=== PATIENT | female | born 1945 | race Caucasian/White ===

== ENCOUNTER 2018-04-18 06:35 | Inpatient (IN) | payer MEDICARE, OTHER, SELFPAY ==
[2018-04-10 10:06] VITALS: BMI 18.4
[2018-04-18] VITALS (14 sets, daily range): BP systolic 103–143; BP diastolic 60–74; PULSE 60–72; RESP 8–17; TEMP 36–36.6; O2SAT 90–100; BMI 18.4
--- NOTE | 2018-04-18 | DI.RAD.S_ITS ---
PROCEDURE: XR LUMBAR SPINE 2-3V INDICATIONS: SPINAL STENOSIS AND DISC HERNIATION COMPARISON: [facility], , L-SPINE 2-3 VIEWS, 08/27/2017, 9:07. TECHNIQUE/FINDINGS: Intraoperative fluoroscopic radiographs demonstrate placement of an intervertebral disc space or device at the level of L3-L4 as well as right-sided L3-L4 posterior spinal fusion hardware consisting of a stabilizing richie and 2 transpedicular screws. Intraoperative fluoroscopy time was 86 seconds for a cumulative dose of 16.54 mGy. IMPRESSION: Intraoperative fluoroscopy provided for the referring service. Please refer to the operative report for further details. Dictated by: Josef Gonzalez M.D. on 04/18/2018 at 11:13 Approved by: Josef Gonzalez M.D. on 04/18/2018 at 11:54
--- NOTE | 2018-04-18 07:28 | PM.PREOP ---
Pre-operative Note Interval Note Pre-op Check: Yes History & Physical Reviewed by Physician and Yes Exam Performed Changes: No
--- NOTE | 2018-04-18 07:28 | PM.OP.1 ---
Operative Date/Time/Diagnoses Date of procedure: 04/18/18 Time of procedure: 10:19 Pre-op diagnosis: Lumbar stenosis and spondylolisthesis Post-op diagnosis: same Procedure & Clinicians Procedure: L3-4 anterior fusion with cage L3-4 posterior fusion with screws Iliac crest bone graft L3-4 laminectomy Use of microscope Placement of epidural catheter Same procedure as scheduled: Yes Indications: [age] year old female with intractable pain from stenosis. They had failed conservative management and requested operative intervention. Risks and benefits of surgery were discussed and appropriate consents were obtained. Surgeon: Javier Eugene Manager Pediatric: Brittany Hernandes Anesthesia Type: General Operative Notes Findings: None Closure Type: primary Specimen(s): none sent Implants & Drains: Nuvasive MAS Reline screws and XLIF cage Applied: catheter Estimated Blood Loss (mL): 30 Procedure in detail: Patient was brought to the operating room and intubated on the table. Time-out was performed. They were then rolled over to the lateral decubitus position with the [id number]. The table was bent and they were taped down in the correct position. X-rays were taken to confirm a true AP and lateral. Preoperative antibiotics were given. The left flank was prepped and draped in standard sterile fashion. Using fluoroscopy, a 3 cm incision was made above the iliac crest. We bluntly dissected down with Metzenbaum scissors and split the 3 abdominal muscle layers. We dissected out the retroperitoneal space and using finger guidance, brought our 1st dilator down to the psoas muscle. Using neuromonitoring and fluoroscopy, we placed it through the psoas onto the L3-4 disc space in an anterior position and gradually pulled the dilator posteriorly along the disc space. We placed our guidewire and measured our depth for the retractor. We then dilated with the next 2 dilators and then placed our retractor over the dilators. Position was confirmed with fluoroscopy and the retractor was locked down to the bar. We opened up the retractor and checked with neuro monitoring. We then placed the erin and again checked with neuro monitoring. The retractor was opened further and the ALL retractor was placed. An annulotomy was performed. We then performed a complete diskectomy with ring curette, pituitary, box osteotome. A Hu was advanced across the disc space under fluoroscopy to release the lateral annulus on the opposite side. We then used sequentially larger trials and confirmed under fluoroscopy. An XLIF cage was packed with Osteocell bone graft and impacted into the L3-4 disc space with fluoroscopy for the anterior fusion at this level. The wound was irrigated. The retractor was closed down. The erin was removed. We carefully removed the retractor with direct visualization to make sure there was no neurovascular or abdominal injury. Final x-rays were taken. The muscle fascia was closed, superficial tissue was closed. The skin was closed. Sterile dressing was placed. The patient was then rolled over on the well-padded prone position on the Fredo table. Using fluoroscopy for localization, a 4 cm incision was made to the right of the midline. We split the fascia with a Bovie. We then began percutaneously placing the screws. Using fluoroscopy and neuro monitoring, a Jamshidi needle was advanced down the right pedicles of L3 and L4. These were switched out for guidewires. We then tapped and placed our Reline MAS screw shanks. We opened up the retractor and exposed the lamina and the transverse processes. The processes were decorticated with a bur. We then brought in the microscope. A right-sided laminectomy was performed at L3-4 with a combination of bur and Kerrisons. We reached across to the opposite side and carefully depress the dura while we cleared the stenosis on the left hand side. The foramina were clear. At the end of this we could sweep a ball probe cephalad and caudally to the other side in the foramen and everything was opened. In the end the ball probe could be placed cephalad and caudally across to the opposite side in the foramen and everything was opened. The wound was copiously irrigated. An epidural catheter was primed with 4mL of 0.5% bupivacaine, 100 mcg fentanyl, 4 mg Duramorph, 1 mg Stadol. The dura was depressed under the cephalad lamina with a ball probe and the epidural catheter was gently advanced 6 cm cephalad. The retractor was removed and the screw heads were placed. A richie was placed and locked down. A small stab incision was made over the PSIS and a Jamshidi needle was placed into the iliac crest and several mL of bone marrow was aspirated. This was mixed with our locally harvested bone graft as well as the remaining Osteocell and placed in the posterolateral gutter for fusion at L3-4. The fascia was then closed. The epidural was then injected without resistance. The catheter was pulled and we closed more over the fascia. Vancomycin powder was placed in the wound. The superficial and skin were closed. Sterile dressing was placed. The patient was then rolled over, extubated, brought to the recovery room with no complications. Complications: none Condition: stable Disposition: PACU Plan for aftercare: Inpatient. Up with PT.
[2018-04-18] MEDS: LACTATED RINGERS 1,000 ML 42 ML IV ×2 (07:30→10:09)
[2018-04-18] MEDS: CEFAZOLIN 2 GM/100 ML FROZ.PIGGY IV ×3 (07:52→23:26)
--- NOTE | 2018-04-18 09:21 | SUR.OPER ---
Right lateral on padded OR table. Head on pillow, gel axillary roll, pillow to support left arm. Legs flexed, pillows between legs, gel pad under down leg and ankle. Multiple passes of 3 inch cloth tape across shoulder, hip, upper and lower legs to secure patient on OR table.
--- NOTE | 2018-04-18 09:21 | SUR.OPER ---
Prone on spine table, head in foam head support, padded chest and pelvic supports, gel pad at knees, lower legs supported by pillows; nipples, genitalia and toes free of pressure, arms secured on foam padded arm boards at <90 degrees abduction. Tape over blanket at thigh secured to table.
[2018-04-18] MEDS: THROMBIN (BOVINE) 5,000 UNIT VIAL 5000 UNIT TOP (09:34)
[2018-04-18] MEDS: VANCOMYCIN 1,000 MG VIAL 1000 MG TOP (09:35)
[2018-04-18] MEDS: SODIUM CHLORIDE 0.9% 1,000 ML, GENTAMICIN 80 MG IRR (09:35)
[2018-04-18] MEDS: BUPIVACAINE 0.5% (PF) 4 ML, MORPHINE-PF 4 MG, BUTORPHANOL 1 MG, fentaNYL 100 MCG INJ (10:00)
--- NOTE | 2018-04-18 10:47 | PC.NURSE ---
Day shift: Pt not on this AC unit at this time. Will assess and chart after she arrives.
--- NOTE | 2018-04-18 11:15 | PC.NURSE ---
Day shift: Pt arrived on unit at approx 1115 from PACU. Oriented to room and call light. Spouse at bedside for support. Pt reports mild back pain of 1/10. CMS ok. Can feel toes and wiggle them. Both dressings are CDI. RA 96%. VS stable. Call light in reach.
--- NOTE | 2018-04-18 11:36 | PC.NURSE ---
Day shift: Unable to transfer orders at this time. Charted and assessed. Pt stable. Awaiting new orders. Will continue to monitor. Per charger operator helper they are working on the transfer of orders.
[2018-04-18] MEDS: LACTATED RINGERS 1,000 ML 125 ML IV ×2 (12:40→20:03)
[2018-04-18] MEDS: CELECOXIB 200 MG CAPSULE 400 MG PO (12:42)
[2018-04-18] MEDS: HYDROCODONE/ACET 5/325 TABLET 2 TAB PO ×3 (12:46→20:03)
[2018-04-18] MEDS: hydrOXYzine pamoate 25 MG CAPSULE PO ×2 (13:49→20:03)
--- NOTE | 2018-04-18 16:14 | PT.IIE ---
Current Diagnoses Spondylolisthesis, lumbar region (04/18/18) Spinal stenosis, lumbar region with neurogenic claudication (04/18/18) Intervertebral disc disorders with radiculopathy, lumbar region (04/18/18) Surgery Performed Operation Date: 04/18/18 07:45 Actual Procedures p L3-4 Ant/Post Instru Fusion(XLIF)w/Bone Graft. L3-4 Laminectomy - Javier Eugene MD Surgical History (Last Updated 04/10/18 @ 11:18 by Brooklynn Leal, RN) History of breast augmentation (Acute) S/P rotator cuff repair (Acute ~1993) Status post biopsy of kidney (Acute) Medical History (Last Updated 04/10/18 @ 11:15 by Brooklynn Leal, RN) Abnormality of coagulation (Acute) Anxiety and depression (Acute) Arthralgia (Acute) Breast implant rupture (Acute) Breast lump (Acute) Chronic neck pain (Acute) DDD (degenerative disc disease), lumbar (Acute) Fatigue (Acute) Hematuria, microscopic (Acute) Hemorrhoids (Acute) History of bronchitis (Acute) History of pneumonia (Acute ~2014) History of renal failure (Acute) History of steroid therapy (Acute) Hyperlipidemia (Acute) Hypertension (Acute) Hypoalbuminemia (Acute) Insomnia (Acute) Low back pain (Acute) Lumbar disc herniation with radiculopathy (Acute) Lumbar stenosis with neurogenic claudication (Acute) Lymphadenopathy (Acute) Nephrotic syndrome (Acute) Nocturnal leg cramps (Acute) Osteopenia (Acute) Proteinuria (Acute) Restless leg syndrome (Acute) Sacroiliitis (Acute) Seasonal allergies (Acute) Sedimentation rate elevation (Acute) Spondylolisthesis, lumbar region (Acute) Tachycardia (Acute) Tobacco use disorder (Acute) Physical Therapy Inpatient Evaluation/Re-Eval M1 PT/OT-IP Prior Functional Status Start: 04/18/18 14:55 Freq: NEEDED Status: Active Protocol: Document 04/18/18 15:50 RS (Rec: 04/18/18 16:13 RS [id number]) Medical Review Prior Functional Status Medical History Reviewed Yes Diet/Fluid Consistency Regular Communication no known deficits Mobility and Gait completely independent Prior Functional Level (Other details) likes to garden Social History Household Members spouse Living Arrangements House Number of Floors (Floors) One Floor Number of Stairs To Enter/Railing? 1STE from garage Employment Status Retired Additional Social History Comment Has a bed that raises/lowers M2 PT-IP Current Condition Start: 04/18/18 14:55 Freq: NEEDED Status: Active Protocol: Document 04/18/18 15:50 RS (Rec: 04/18/18 16:13 RS [id number]) Physical Therapy Current Condition Current Condition Evaluation Date 04/18/18 Treatment Diagnosis L3-4 anterior fusion w/ cage Onset Date 04/18/18 Precautions Lumbar Precautions Log Roll No Twisting Limit Bending Lifting Restriction of 10 lbs Gait Belt above Incisional Area Weight Bearing Status Weight Bearing Status Weight Bear as Tolerated M3 PT-IP Subjective Start: 04/18/18 14:55 Freq: NEEDED Status: Active Protocol: Document 04/18/18 15:50 RS (Rec: 04/18/18 16:13 RS [id number]) Subjective Physical Therapy Visit Type Type Initial Evaluation Visit Start Time 15:00 Visit Stop Time 15:50 Total Visit Minutes 50 Physical Therapy Visit Comments Patient Comments Pt reports doing well, is happy with pain control so far . Therapy Pain Assessment Pain When Pain Assessed At Rest Pain Present Pain Present Pain Reported Location Back Intensity 3 Scale Used Numeric (1 - 10) Pain Management Techniques Apply Cold Modification of Treatment Re-positioning Timing of Activity with Medications M4 PT-IP Mobility and Gait Start: 04/18/18 14:55 Freq: NEEDED Status: Active Protocol: Document 04/18/18 15:50 RS (Rec: 04/18/18 16:13 RS [id number]) PT-Bed Mobility Assessment Rolling Type of Rolling Log Rolling Level of Assist Standby Assistance Supine to Sit Supine to Sit Contact Guard Assistance Bedrails Sit to Supine Sit to Supine Standby Assistance Bedrails Scooting Scooting to Edge of Bed Standby Assistance PT-Transfer Assessment Sit to and From Stand Sit to and from Stand Standby Assistance Equipment Transfer Assistive Device Gait Belt Front Wheeled Walker Transfers Transfer Destination Bed Transfer Technique Stand Step Pivot Transfer Ability Level of Assist Standby Assistance Comments Mobility Comments very steady, no cues needed Gait Assessment Gait Gait Assistance Required: Standby Assistance Distance (Feet) (feet) 300 Assistive Devices Assistive Device Gait Belt Front Wheeled Walker Gait Deviations General Gait Pattern Within Normal Limits Comments Gait Comments completely WNL w/ a walker, can likely progress to amb without FWW next session Stair Climbing Assessment Comments Stair Climbing Comments not yet attempted PT-Balance Assessment Sitting Balance and Reactions Static Sitting Balance Ability Normal Dynamic Sitting Balance Ability Normal Standing Balance and Reactions Static Standing Balance Ability Normal Dynamic Standing Balance Ability Normal Device Used FWW M5 PT-IP Objective Assessments Start: 04/18/18 14:55 Freq: NEEDED Status: Active Protocol: Document 04/18/18 15:50 RS (Rec: 04/18/18 16:13 RS [id number]) Orientation Orientation/Cognition Level of Alertness Alert Orientation Name Age Birthday Month Date Year Day of Week Place Situation Language Function Ability No Deficits Noted Safety Awareness Understands Safety Issues Memory Description No Deficits Noted Gross Range of Motion Upper Extremity ROM Assessment Within Functional Limits Lower Extremity ROM Assessment Within Functional Limits Strength Upper Extremity Strength Assessment Within Functional Limits Lower Extremity Strength Assessment Within Functional Limits M6 PT-IP Treatment Start: 04/18/18 14:55 Freq: NEEDED Status: Active Protocol: Document 04/18/18 15:50 RS (Rec: 04/18/18 16:13 RS [id number]) Physical Therapy Treatment Education Education Provided Precautions Post-Op Packet Safety M7 PT-IP Assessment and Plan Start: 04/18/18 14:55 Freq: NEEDED Status: Active Protocol: Document 04/18/18 15:50 RS (Rec: 04/18/18 16:13 RS [id number]) PT Summary Assessment and Plan Potential Rehabilitation Potential Excellent Summary Impairments Bed Mobility Transfers Gait Activity Tolerance Progress Towards Goals Progressing Toward Goals Assessment Summary Pt is POD#0 L3-4 anterior fusion and is doing quite well with all mobility. Pt needs no physical assist with any mobility at this point and will likely progress off the walker quickly tomorrow. Pt will benefit from one more session for stair training prior to discharge but will otherwise be ready to go home tomorrow from a PT standpoint. No formalized caregiver training is needed. Pt will not need any equipment, but pt will benefit from ongoing outpatient PT. Goals Bed Mobility Goal Independent Transfer Goal Independent Gait Goal Independent Other Goals indep going up/down 1 step Days to Meet Goals 1 Frequency of Treatment Frequency Of Treatment Twice a Day Treatment Plan Physical Therapy Treatment Plan Bed Mobility Training Transfer Training Gait Training Post Op Education Recommendations To Nursing Amount of Assist Needed Standby Assistance 1 Person Assist Discharge Recommendations PT Discharge Recommendations Home with Assistance Outpatient PT Equipment Needed for Home Before none Discharge
[2018-04-18] MEDS: diphenhydrAMINE 25 MG TABLET PO (16:27)
[2018-04-18] MEDS: GABAPENTIN 100 MG CAPSULE 200 MG PO (17:42)
[2018-04-18] MEDS: GABAPENTIN 300 MG CAPSULE PO (20:03)
[2018-04-18] MEDS: DOCUSATE 100 MG CAPSULE PO (20:03)
[2018-04-18] MEDS: SENNOSIDES 8.6 MG TABLET 17.2 MG PO (20:03)
[2018-04-18] MEDS: CELECOXIB 200 MG CAPSULE PO (20:03)
[2018-04-18] MEDS: LISINOPRIL 5 MG TABLET PO (23:40)
--- NOTE | 2018-04-19 00:25 | PC.NURSE ---
Pt. concerned about her B/P 143/74, HR. 68. Reported my B/P in normally in the 110's systolic the 140's is high. Requested to take her Lisinopril 5 mg. admin. Denies any pain @ this time, will monitor.
[2018-04-19] MEDS: hydrOXYzine pamoate 25 MG CAPSULE PO (01:32)
[2018-04-19] MEDS: HYDROCODONE/ACET 5/325 TABLET 1 TAB PO ×3 (01:32→09:06)
[2018-04-19 03:23] VITALS: BP 126/69; PULSE 71; RESP 18; TEMP 36.4; O2SAT 98
[2018-04-19] MEDS: SODIUM CHLORIDE 0.9% FLUSH 10 ML IV (04:24)
[2018-04-19 05:39] LABS: Hematocrit 29.3 % (36-46); Hemoglobin 10.2 g/dL (12.0-16.0)
[2018-04-19 05:45] LABS: BUN Creatinine Ratio 31.7 (6-22); Blood Urea Nitrogen 19 mg/dL (7-17); Calcium 8.4 mg/dL (8.4-10.2); Carbon Dioxide 30 mmol/L (22-32); Chloride 89 mmol/L (98-107); Estimated Glomerular Filt Rate > 60.0 mL/min (>60); Glucose 149 mg/dL (80-110); HEMOLYSIS < 15 (0-50); Potassium 4.4 mmol/L (3.4-5.1); Sodium 125 mmol/L (137-145)
[2018-04-19 07:30] VITALS: BP 125/66; PULSE 69; RESP 16; TEMP 36.7; O2SAT 99
--- NOTE | 2018-04-19 07:49 | PM.PNPO.1 ---
Subjective Date Patient Seen: 04/19/18 Time Patient Seen: 07:49 Interval history: Pain is about 1/10. She has been up with physical therapy. She is able to get out of bed and get on and off the toilet by herself. Overall she feels great no more leg pain. Exam Vital Signs (past 8 hours): - 04/19/18 03:23 Temperature 97.6 F Pulse Rate 71 Respiratory Rate 18 Blood Pressure 126/69 H Pulse Oximetry 98 Oxygen Delivery Method Room Air Oxygen Flow Rate 0 Const Orientation: alert and oriented x3 Back/Spine/Pelvis Other: Dressing with minimal dry drainage. 5/5 motor both lower extremities Objective Labs Result Diagrams: 04/19/18 05:16 04/19/18 05:16 Labs: Laboratory Results - last 24 hr 04/19/18 04/19/18 05:16 05:16 Hgb 10.2 L Hct 29.3 L Sodium 125 L Potassium 4.4 Chloride 89 L Carbon Dioxide 30 BUN 19 H Creatinine 0.60 Estimated GFR > 60.0 BUN/Creatinine Ratio 31.7 H Glucose 149 H Calcium 8.4 Assessment & Plan Post-op Postoperative Procedures Operation Date: 04/18/18 07:45 Actual Procedures Side Surgeon p L3-4 Ant/Post Instru Fusion(XLIF)w/Bone Graft. L3-4 Laminectomy Javier Eugene MD she is doing very well. She would like to go home and I think that is fine. Time Spent With Patient less than 15 minutes Quality VTE Deep Vein Thrombosis/Pulmonary Embolism Present on Admission: No
--- NOTE | 2018-04-19 07:52 | PM.DS.1 ---
History of Present Illness Date Patient Seen: 04/19/18 Time Patient Seen: 07:53 Chief complaint: [id number] Narrative: 72-year-old female with right leg radiculopathy. She was admitted on 04/18/2018 for L3-4 laminectomy and anterior/posterior fusion Discharge Providers Date of admission: 04/18/18 06:35 Primary care physician: Nolberto Us MD Consults: 04/18/18 11:33 Consult to Dietitian, Adult Routine Comment: Reason For Exam: Low BMI promt 04/18/18 12:17 Consult to Discharge Planning Routine Comment: Consult to Occupational Therapy Evaluate & Treat Comment: Physician Instructions: Evaluate and treat Consult to Physical Therapy Evaluate & Treat Comment: Physician Instructions: Evaluate and Treat Discharge provider: Javier Eugene MD Summary Discharge Diagnosis: Lumbar stenosis and spondylolisthesis Hospital Course: Underwent L3-4 laminectomy and anterior/posterior instrumented fusion on 04/18/2018. Minimal pain afterwards. Did very well with physical therapy and was independent and up and mobilizing by herself by the next morning. She requested to discharge home as she was doing so well. Time Spent with Patient Less than 30 minutes Exam Vital Signs (past 8 hours): - 04/19/18 03:23 Temperature 97.6 F Pulse Rate 71 Respiratory Rate 18 Blood Pressure 126/69 H Pulse Oximetry 98 Oxygen Delivery Method Room Air Oxygen Flow Rate 0 Const Orientation: alert and oriented x3 Back/Spine/Pelvis Other: 5/5 motor both lower extremities Objective Labs Result Diagrams: 04/19/18 05:16 04/19/18 05:16 Labs: Laboratory Results - last 24 hr 04/19/18 04/19/18 05:16 05:16 Hgb 10.2 L Hct 29.3 L Sodium 125 L Potassium 4.4 Chloride 89 L Carbon Dioxide 30 BUN 19 H Creatinine 0.60 Estimated GFR > 60.0 BUN/Creatinine Ratio 31.7 H Glucose 149 H Calcium 8.4 Discharge Plan Discharge Plan Patient Disposition: Home, Self-Care Discharge comment: f/u 1.5 wks Discharge Med Rec/Prescriptions Prescriptions: New hydrocodone-acetaminophen 5-325 mg Tablet See Label Instructions .ROUTE .COMPLEX PRN (Reason: Pain, Severe (7-10)) Qty: 30 RF: 0 hydroxyzine pamoate 25 mg Capsule 25 mg PO Q4HR PRN (Reason: spasms) Qty: 20 RF: 0 celecoxib [Celebrex] 200 mg Capsule 200 mg PO BID PRN (Reason: pain) Qty: 30 RF: 0 Continue atorvastatin [Lipitor] 10 MG tablet 10 mg PO QDAY Qty: 0 RF: 0 potassium chloride [Klor-Con M20] 20 MEQ tablet,ER particles/crystals 1 tab PO DAILY Qty: 0 RF: 0 pramipexole [Mirapex] 0.125 MG tablet 0.125 mg PO SEEINSTR Qty: 0 RF: 0 lisinopril 5 mg Tablet 5 mg PO DAILY PRN (Reason: blood pressure control) RF: 0 gabapentin 100 mg Capsule 200 mg PO TID RF: 0 ascorbic acid (vitamin C) [Vitamin C] 1,000 mg Tablet 1,000 mg PO DAILY RF: 0 cholecalciferol (vitamin D3) [Vitamin D3] 5,000 unit Tablet 5,000 unit PO DIRECTED RF: 0 methylsulfonylmethane [MSM] 1,000 mg Tablet 3,000 mg PO DAILY RF: 0 omega 0-yjb-sjh-fish oil 1,000 mg (120 mg-180 mg) Capsule 1 cap PO DAILY RF: 0 calcium carb and citrate-vitD3 [Citracal + D Slow Release] 600 mg calcium- 500 unit Tablet Extended Release 2 tab PO DAILY RF: 0 coenzyme Q10 100 mg Tablet 100 mg PO DAILY RF: 0 atenolol 25 mg tablet 25 mg PO DAILY RF: 0 Discontinued hydrocodone-acetaminophen [[place]] 5 MG/325 MG tablet 1 - 2 tab PO Q6HP PRN (Reason: Pain) RF: 0 Provider Discharge Instructions Activity: limited BLT, 10 lbs lift Wound Care Dressing: may change POD #5 and shower Discharge Data Primary Care Provider: Nolberto Us Attending Provider: Javier Eugene Admit Date/Time: 04/18/18 06:35 Quality VTE Deep Vein Thrombosis/Pulmonary Embolism Present on Admission: No
--- NOTE | 2018-04-19 07:55 | P.DS_ITS ---
History of Present Illness Date Patient Seen: 04/19/18 Time Patient Seen: 07:53 Chief complaint: [id number] Narrative: 72-year-old female with right leg radiculopathy. She was admitted on 04/18/2018 for L3-4 laminectomy and anterior/posterior fusion Discharge Providers Date of admission: 04/18/18 06:35 Primary care physician: Nolberto Us MD Consults: 04/18/18 11:33 Consult to Dietitian, Adult Routine Comment: Reason For Exam: Low BMI promt 04/18/18 12:17 Consult to Discharge Planning Routine Comment: Consult to Occupational Therapy Evaluate & Treat Comment: Physician Instructions: Evaluate and treat Consult to Physical Therapy Evaluate & Treat Comment: Physician Instructions: Evaluate and Treat Discharge provider: Javier Eugene MD Summary Discharge Diagnosis: Lumbar stenosis and spondylolisthesis Hospital Course: Underwent L3-4 laminectomy and anterior/posterior instrumented fusion on 04/18/2018. Minimal pain afterwards. Did very well with physical therapy and was independent and up and mobilizing by herself by the next morning. She requested to discharge home as she was doing so well. Time Spent with Patient Less than 30 minutes Exam Vital Signs (past 8 hours): - 04/19/18 03:23 Temperature 97.6 F Pulse Rate 71 Respiratory Rate 18 Blood Pressure 126/69 H Pulse Oximetry 98 Oxygen Delivery Method Room Air Oxygen Flow Rate 0 Const Orientation: alert and oriented x3 Back/Spine/Pelvis Other: 5/5 motor both lower extremities Objective Labs Result Diagrams: 04/19/18 05:16 04/19/18 05:16 Labs: Laboratory Results - last 24 hr 04/19/18 04/19/18 05:16 05:16 Hgb 10.2 L Hct 29.3 L Sodium 125 L Potassium 4.4 Chloride 89 L Carbon Dioxide 30 BUN 19 H Creatinine 0.60 Estimated GFR > 60.0 BUN/Creatinine Ratio 31.7 H Glucose 149 H Calcium 8.4 Discharge Plan Discharge Plan Patient Disposition: Home, Self-Care Discharge comment: f/u 1.5 wks Discharge Med Rec/Prescriptions Prescriptions: New hydrocodone-acetaminophen 5-325 mg Tablet See Label Instructions .ROUTE .COMPLEX PRN (Reason: Pain, Severe (7-10)) Qty : 30 RF: 0 hydroxyzine pamoate 25 mg Capsule 25 mg PO Q4HR PRN (Reason: spasms) Qty: 20 RF: 0 celecoxib [Celebrex] 200 mg Capsule 200 mg PO BID PRN (Reason: pain) Qty: 30 RF: 0 Continue atorvastatin [Lipitor] 10 MG tablet 10 mg PO QDAY Qty: 0 RF: 0 potassium chloride [Klor-Con M20] 20 MEQ tablet,ER particles/crystals 1 tab PO DAILY Qty: 0 RF: 0 pramipexole [Mirapex] 0.125 MG tablet 0.125 mg PO SEEINSTR Qty: 0 RF: 0 lisinopril 5 mg Tablet 5 mg PO DAILY PRN (Reason: blood pressure control) RF: 0 gabapentin 100 mg Capsule 200 mg PO TID RF: 0 ascorbic acid (vitamin C) [Vitamin C] 1,000 mg Tablet 1,000 mg PO DAILY RF: 0 cholecalciferol (vitamin D3) [Vitamin D3] 5,000 unit Tablet 5,000 unit PO DIRECTED RF: 0 methylsulfonylmethane [MSM] 1,000 mg Tablet 3,000 mg PO DAILY RF: 0 omega 9-alc-ytt-fish oil 1,000 mg (120 mg-180 mg) Capsule 1 cap PO DAILY RF: 0 calcium carb and citrate-vitD3 [Citracal + D Slow Release] 600 mg calcium- 500 unit Tablet Extended Release 2 tab PO DAILY RF: 0 coenzyme Q10 100 mg Tablet 100 mg PO DAILY RF: 0 atenolol 25 mg tablet 25 mg PO DAILY RF: 0 Discontinued hydrocodone-acetaminophen [[place]] 5 MG/325 MG tablet 1 - 2 tab PO Q6HP PRN (Reason: Pain) RF: 0 Provider Discharge Instructions Activity: limited BLT, 10 lbs lift Wound Care Dressing: may change POD #5 and shower Discharge Data Primary Care Provider: Nolberto Us Attending Provider: Javier Eugene Admit Date/Time: 04/18/18 06:35 Quality VTE Deep Vein Thrombosis/Pulmonary Embolism Present on Admission: No
--- NOTE | 2018-04-19 08:44 | PT.IPTN ---
Current Diagnoses Spondylolisthesis, lumbar region (04/18/18) Spinal stenosis, lumbar region with neurogenic claudication (04/18/18) Intervertebral disc disorders with radiculopathy, lumbar region (04/18/18) Surgery Performed Operation Date: 04/18/18 07:45 Actual Procedures p L3-4 Ant/Post Instru Fusion(XLIF)w/Bone Graft. L3-4 Laminectomy - Javier Eugene MD Physical Therapy Treatment Note M2 PT-IP Current Condition Start: 04/18/18 14:55 Freq: NEEDED Status: Active Protocol: Document 04/18/18 15:50 RS (Rec: 04/18/18 16:13 RS [id number]) Physical Therapy Current Condition Current Condition Evaluation Date 04/18/18 Treatment Diagnosis L3-4 anterior fusion w/ cage Onset Date 04/18/18 Precautions Lumbar Precautions Log Roll No Twisting Limit Bending Lifting Restriction of 10 lbs Gait Belt above Incisional Area Weight Bearing Status Weight Bearing Status Weight Bear as Tolerated M3 PT-IP Subjective Start: 04/18/18 14:55 Freq: NEEDED Status: Active Protocol: Document 04/19/18 08:44 MDD (Rec: 04/19/18 09:01 MDD [id number]) Subjective Physical Therapy Visit Type Type Treatment Note Visit Start Time 08:35 Visit Stop Time 08:44 Total Visit Minutes 9 Number of VEHICLE MONITOR TECHNICIAN Visits 0 Physical Therapy Visit Comments Patient Comments Pt reports feeling ready to go home. She is already up and dressed. , Damián, just arrived. Requests subscription or additional dose of pain medicine prior to her car ride home. Therapy Pain Assessment Pain When Pain Assessed During Mobility Pain Present Pain Present Pain Reported Location Back Intensity 4 Scale Used Numeric (1 - 10) Description Aching M4 PT-IP Mobility and Gait Start: 04/18/18 14:55 Freq: NEEDED Status: Active Protocol: Document 04/18/18 15:50 RS (Rec: 04/18/18 16:13 RS [id number]) PT-Bed Mobility Assessment Rolling Type of Rolling Log Rolling Level of Assist Standby Assistance Supine to Sit Supine to Sit Contact Guard Assistance Bedrails Sit to Supine Sit to Supine Standby Assistance Bedrails Scooting Scooting to Edge of Bed Standby Assistance PT-Transfer Assessment Sit to and From Stand Sit to and from Stand Standby Assistance Equipment Transfer Assistive Device Gait Belt Front Wheeled Walker Transfers Transfer Destination Bed Transfer Technique Stand Step Pivot Transfer Ability Level of Assist Standby Assistance Comments Mobility Comments very steady, no cues needed Gait Assessment Gait Gait Assistance Required: Standby Assistance Distance (Feet) (feet) 300 Assistive Devices Assistive Device Gait Belt Front Wheeled Walker Gait Deviations General Gait Pattern Within Normal Limits Comments Gait Comments completely WNL w/ a walker, can likely progress to amb without FWW next session Stair Climbing Assessment Comments Stair Climbing Comments not yet attempted PT-Balance Assessment Sitting Balance and Reactions Static Sitting Balance Ability Normal Dynamic Sitting Balance Ability Normal Standing Balance and Reactions Static Standing Balance Ability Normal Dynamic Standing Balance Ability Normal Device Used FWW M5 PT-IP Objective Assessments Start: 04/18/18 14:55 Freq: NEEDED Status: Active Protocol: Document 04/18/18 15:50 RS (Rec: 04/18/18 16:13 RS [id number]) Orientation Orientation/Cognition Level of Alertness Alert Orientation Name Age Birthday Month Date Year Day of Week Place Situation Language Function Ability No Deficits Noted Safety Awareness Understands Safety Issues Memory Description No Deficits Noted Gross Range of Motion Upper Extremity ROM Assessment Within Functional Limits Lower Extremity ROM Assessment Within Functional Limits Strength Upper Extremity Strength Assessment Within Functional Limits Lower Extremity Strength Assessment Within Functional Limits M6 PT-IP Treatment Start: 04/18/18 14:55 Freq: NEEDED Status: Active Protocol: Document 04/19/18 08:44 MDD (Rec: 04/19/18 09:01 [facility] [id number]) Physical Therapy Treatment Education Education Provided Precautions Safety Other Treatments Other Treatment Performed Gait training and stair training with handhold assist. Attempted cane training, but pt refused stating she will just use her . Performed Ascend/ descend one step with handhold assist and ambulated 150 feet x 2. M7 PT-IP Assessment and Plan Start: 04/18/18 14:55 Freq: NEEDED Status: Active Protocol: Document 04/19/18 08:44 MDD (Rec: 04/19/18 09:01 [facility] [id number]) PT Summary Assessment and Plan Potential Rehabilitation Potential Excellent Status of Condition at Evaluation Stable Summary Impairments Pain Progress Towards Goals Safe For Discharge Goals Met Assessment Summary Pt demonstrates good mobility this day. May benefit from use of a cane for a few days but expressly refuses. Safe to d/c home when medically appropriate. Goals Bed Mobility Goal Independent Transfer Goal Independent Gait Goal Independent Other Goals indep going up/down 1 step Days to Meet Goals 1 Frequency of Treatment Frequency Of Treatment Discharge Treatment Plan Physical Therapy Treatment Plan Bed Mobility Training Transfer Training Gait Training Post Op Education Recommendations To Nursing Amount of Assist Needed Standby Assistance 1 Person Assist Discharge Recommendations PT Discharge Recommendations Home with Assistance Outpatient PT Equipment Needed for Home Before none Discharge
[2018-04-19] MEDS: ATENOLOL 25 MG TABLET PO (09:04)
[2018-04-19] MEDS: CELECOXIB 200 MG CAPSULE PO (09:04)
[2018-04-19] MEDS: ASCORBIC ACID 500 MG TABLET 1000 MG PO (09:04)
[2018-04-19] MEDS: POTASSIUM CHLORIDE 20 MEQ TAB PO (09:04)
[2018-04-19] MEDS: ATORVASTATIN 10 MG TABLET PO (09:04)
--- NOTE | 2018-04-19 09:25 | OT.IP.EVAL ---
Current Diagnoses Spondylolisthesis, lumbar region (04/18/18) Spinal stenosis, lumbar region with neurogenic claudication (04/18/18) Intervertebral disc disorders with radiculopathy, lumbar region (04/18/18) Surgery Performed Operation Date: 04/18/18 07:45 Actual Procedures p L3-4 Ant/Post Instru Fusion(XLIF)w/Bone Graft. L3-4 Laminectomy - Javier Eugene MD Past Medical History (Last Updated 04/10/18 @ 11:15 by Brooklynn Leal, RN) Abnormality of coagulation (Acute) Anxiety and depression (Acute) Arthralgia (Acute) Breast implant rupture (Acute) Breast lump (Acute) Chronic neck pain (Acute) DDD (degenerative disc disease), lumbar (Acute) Fatigue (Acute) Hematuria, microscopic (Acute) Hemorrhoids (Acute) History of bronchitis (Acute) History of pneumonia (Acute ~2014) History of renal failure (Acute) History of steroid therapy (Acute) Hyperlipidemia (Acute) Hypertension (Acute) Hypoalbuminemia (Acute) Insomnia (Acute) Low back pain (Acute) Lumbar disc herniation with radiculopathy (Acute) Lumbar stenosis with neurogenic claudication (Acute) Lymphadenopathy (Acute) Nephrotic syndrome (Acute) Nocturnal leg cramps (Acute) Osteopenia (Acute) Proteinuria (Acute) Restless leg syndrome (Acute) Sacroiliitis (Acute) Seasonal allergies (Acute) Sedimentation rate elevation (Acute) Spondylolisthesis, lumbar region (Acute) Tachycardia (Acute) Tobacco use disorder (Acute) Surgical History (Last Updated 04/10/18 @ 11:18 by Brooklynn Leal, RN) History of breast augmentation (Acute) S/P rotator cuff repair (Acute ~1993) Status post biopsy of kidney (Acute)
--- NOTE | 2018-04-19 09:30 | OT.IP.EVAL ---
Current Diagnoses Spondylolisthesis, lumbar region (04/18/18) Spinal stenosis, lumbar region with neurogenic claudication (04/18/18) Intervertebral disc disorders with radiculopathy, lumbar region (04/18/18) Surgery Performed Operation Date: 04/18/18 07:45 Actual Procedures p L3-4 Ant/Post Instru Fusion(XLIF)w/Bone Graft. L3-4 Laminectomy - Javier Eugene MD Past Medical History (Last Updated 04/10/18 @ 11:15 by Brooklynn Leal, RN) Abnormality of coagulation (Acute) Anxiety and depression (Acute) Arthralgia (Acute) Breast implant rupture (Acute) Breast lump (Acute) Chronic neck pain (Acute) DDD (degenerative disc disease), lumbar (Acute) Fatigue (Acute) Hematuria, microscopic (Acute) Hemorrhoids (Acute) History of bronchitis (Acute) History of pneumonia (Acute ~2014) History of renal failure (Acute) History of steroid therapy (Acute) Hyperlipidemia (Acute) Hypertension (Acute) Hypoalbuminemia (Acute) Insomnia (Acute) Low back pain (Acute) Lumbar disc herniation with radiculopathy (Acute) Lumbar stenosis with neurogenic claudication (Acute) Lymphadenopathy (Acute) Nephrotic syndrome (Acute) Nocturnal leg cramps (Acute) Osteopenia (Acute) Proteinuria (Acute) Restless leg syndrome (Acute) Sacroiliitis (Acute) Seasonal allergies (Acute) Sedimentation rate elevation (Acute) Spondylolisthesis, lumbar region (Acute) Tachycardia (Acute) Tobacco use disorder (Acute) Surgical History (Last Updated 04/10/18 @ 11:18 by Brooklynn Leal, [email or web address]) History of breast augmentation (Acute) S/P rotator cuff repair (Acute ~1993) Status post biopsy of kidney (Acute) Occupational Therapy Inpatient Evaluation/Re-Eval M1 PT/OT-IP Prior Functional Status Start: 04/18/18 14:55 Freq: NEEDED Status: Active Protocol: Document 04/18/18 15:50 RS (Rec: 04/18/18 16:13 RS [id number]) Medical Review Prior Functional Status Medical History Reviewed Yes Diet/Fluid Consistency Regular Communication no known deficits Mobility and Gait completely independent Prior Functional Level (Other details) likes to garden Social History Household Members spouse Living Arrangements House Number of Floors (Floors) One Floor Number of Stairs To Enter/Railing? 1STE from garage Employment Status Retired Additional Social History Comment Has a bed that raises/lowers M1 PT/OT-IP Prior Functional Status Start: 04/19/18 09:06 Freq: NEEDED Status: Active Protocol: Document 04/19/18 09:07 [facility] (Rec: 04/19/18 09:25 [facility] [id number]) Medical Review Prior Functional Status Medical History Reviewed Yes Diet/Fluid Consistency Regular Communication no known deficits Mobility and Gait completely independent Prior Functional Level (Other details) likes to garden Social History Household Members spouse Living Arrangements House Number of Floors (Floors) One Floor Number of Stairs To Enter/Railing? 1STE from garage Home Environment Standard Height Toilet Tub/Shower Home Equipment Hand Held Shower Employment Status Retired Additional Social History Comment Has a bed that raises/lowers M2 OT-IP Current Condition Start: 04/19/18 09:06 Freq: Status: Active Protocol: Document 04/19/18 09:07 [facility] (Rec: 04/19/18 09:25 [facility] [id number]) Occupational Therapy Current Condition Current Condition Evaluation Date 04/19/18 Treatment Diagnosis Lumbar Stenosis Diagnosis Onset Date 04/18/18 Post Operative Precautions Lumbar Precautions Log Roll No Twisting Limit Bending Lifting Restriction of 10 lbs Gait Belt above Incisional Area Weight Bearing Status Weight Bearing Status Weight Bear as Tolerated M3 OT- IP Subjective and Pain Start: 04/19/18 09:06 Freq: Status: Active Protocol: Document 04/19/18 09:07 [facility] (Rec: 04/19/18 09:25 [facility] [id number]) OT- Subjective Occupational Therapy Visit Type Type Initial Evaluation Visit Start Time 08:10 Visit Stop Time 08:30 Total Visit Minutes 20 Occupational Therapy Visit Comments Patient/Caregiver Goals Pt states ready to go home today. OT Pain Assessment Pain When Pain Assessed At Rest Pain Present Pain Present Denied Pain M4 OT- IP ADL's Start: 04/19/18 09:06 Freq: Status: Active Protocol: Document 04/19/18 09:07 [facility] (Rec: 04/19/18 09:25 [facility] [id number]) OT [id number] General Evaluation Self-Feeding Ability Independent OT ADL-Grooming General Evaluation Grooming Ability Independent OT ADL-Dressing General Eval Upper Body Dressing Ability Independent Lower Body Dressing Ability Standby Assistance Areas Needing Assistance Retrieving/Set-up of Clothing Comments OT Dressing Comments Pt able to comfortably mady/ doff sandals and socks while crossing her legs over. Recommended pt to call if using the bathrom at night as sleep in a different room. M6 OT- IP Functional Cognition Start: 04/19/18 09:06 Freq: Status: Active Protocol: Document 04/19/18 09:07 [facility] (Rec: 04/19/18 09:25 [facility] [id number]) Cognitive Factors Limiting Selfcare Function Cognitive Ability Level of Alertness Alert Patient Orientation Name Age Birthday Month Date Year Day of Week Place Situation Attention Span Ability Capable of Focused Attention Capable of Sustained Attention Ability to Follow Commands Able to Follow Multi-Step Commands Memory Description Short Term Impaired Pnp Intact Safety Awareness Decreased Recall of Precautions Decreased Ability to Apply Precautions Underestimates Need for Assistance Problem Solving Ability Needs Assist to Identify Solutions Cognitive Comments Cognitive Assessment Comments Pt needing reminders to incorporate back precautions for all needs, pt tends to twist. Pt still not having any pain at this time. OT- Vision and Hearing OT- Hearing Assessment OT- Hearing Assessment WFL OT- Vision Assessment Visual Acuity WFL M7 OT- IP Mobility and Balance Start: 04/19/18 09:06 Freq: Status: Active Protocol: Document 04/19/18 09:07 [facility] (Rec: 04/19/18 09:25 [facility] [id number]) OT-Transfer Assessment Sit to and From Stand Sit to and from Stand Standby Assistance Transfers Transfer Ability Standby Assistance Technique Transfer Destination Chair Transfer Technique Stand Step Pivot Devices Transfer Assistive Devices None Comments Mobility Comments Pt able to walk with short distances with no device, however tends to lean backwards posteriorly especially during longer distances and recommended use of FWW or SPC once checked out by PT. Pt insisted that pt will just hang onto her . OT- Gait Assessment Gait Gait Assistance Required: Standby Assistance Contact Guard Assist Assistive Devices Assistive Device None OT- Balance Assessment Sitting Balance and Reactions Static Sitting Balance Ability Normal Dynamic Sitting Balance Ability Normal Standing Balance and Reactions Static Standing Balance Ability Good Dynamic Standing Balance Ability Fair M8 OT- IP Objective Assessments Start: 04/19/18 09:06 Freq: Status: Active Protocol: Document 04/19/18 09:07 [facility] (Rec: 04/19/18 09:25 [facility] [id number]) OT Gross Range of Motion Upper Extremity Range of Motion Assessment Within Functional Limits OT Strength Upper Extremity Strength Assessment Within Functional Limits OT-Muscle Tone Assessment Muscle Tone WNL Yes M9 OT- IP Assessment and Plan Start: 04/19/18 09:06 Freq: Status: Active Protocol: Document 04/19/18 09:07 [facility] (Rec: 04/19/18 09:25 [facility] [id number]) OT Summary Assessment and Plan Potential Rehabilitation Potential Good Analytic Complexity at Evaluation Low Summary OT Impairments Balance Functional Mobility Bathing Progress Towards Goals Progressing Toward Goals Assessment Summary Pt doing very well and has a supportive to help at home. Goals Patient/Caregiver Education Goal Demonstrate Post-Op Precautions Caregiver Independent Assisting Patient Days to Meet Goals 1 Frequency of Treatment Frequency Of Treatment Once a Day Treatment Plan OT Treatment Plan ADL Training Functional Mobility Patient/Family Education Discharge Planning Discharge Recommendations OT Discharge Recommendations Home with Assistance Home Equipment Needs Shower chair
== END 2018-04-19 09:12 | disposition home or self-care (01) | DRG 455 ==
PROVIDERS: Admitting Provider Orthopaedic Surgery; Family Provider Family Medicine; PCP Family Medicine; Visit Provider Orthopaedic Surgery
PROC: 0SG00A0 Fusion of Lumbar Vertebral Joint with Interbody Fusion Device, Anterior Approach, Anterior Column, Open Approach (ICD-10-PCS; CPT 22558; principal; 2018-04-18 07:45)
DX: M48.062 Spinal stenosis, lumbar region with neurogenic claudication (principal); M51.26 Other intervertebral disc displacement, lumbar region; M43.16 Spondylolisthesis, lumbar region; I10 Essential (primary) hypertension
CPT/HCPCS: 36415; 72100; 76001; 80048; 85014; 85018; 97116; 97161; 97165; 97530; 99406; C1776; C1788; J0330; J0595; J0690; J1100; J1170; J2274; J2405; J2704; J3010

== ENCOUNTER 2019-06-17 22:02 | Emergency (ER) | payer MEDICARE, OTHER, SELFPAY ==
[2018-04-18 11:21] VITALS: BMI 18.4
--- NOTE | 2019-06-17 22:06 | ED_ITS ---
HPI - General Adult General Chief complaint: Allergic Reaction Stated complaint: tongue swollen after eating sausage Time Seen by Provider: 06/17/19 22:05 Source: patient Mode of arrival: Ambulatory Limitations: no limitations History of Present Illness HPI narrative: 74-year-old female here for evaluation of a swollen left side of her tongue. She states that it started prior to coming here to the emergency department. Has never had anything like this in the past. Does feel like her throat is a little swollen but has no problems breathing or swallowing. She states the only thing new that she can think of was that she ate some sausage approximately 1 hour prior to this event happening. No vomiting. No headaches. Has not tried anything for symptoms prior to arrival. She is on lisinopril but takes her medications in the morning. Related Data Home Medications Medication Instructions Recorded Confirmed atorvastatin [Lipitor] 10 mg PO QDAY #0 12/06/16 04/18/18 potassium chloride [Klor-Con M20] 1 tab PO DAILY #0 12/06/16 04/18/18 pramipexole [Mirapex] 0.125 mg PO SEEINSTR #0 12/06/16 04/18/18 ascorbic acid (vitamin C) [Vitamin 1,000 mg PO DAILY 04/10/18 04/18/18 C] calcium carb and citrate-vitD3 2 tab PO DAILY 04/10/18 04/18/18 [Citracal + D Slow Release] cholecalciferol (vitamin D3) 5,000 unit PO DIRECTED 04/10/18 04/18/18 [Vitamin D3] coenzyme Q10 100 mg PO DAILY 04/10/18 04/18/18 gabapentin 200 mg PO TID 04/10/18 04/18/18 lisinopril 5 mg PO DAILY PRN 04/10/18 04/18/18 methylsulfonylmethane [MSM] 3,000 mg PO DAILY 04/10/18 04/18/18 omega 4-xoh-mzq-fish oil 1 cap PO DAILY 04/10/18 04/18/18 atenolol 25 mg PO DAILY 04/18/18 04/18/18 Previous Rx's Medication Instructions Recorded celecoxib [Celebrex] 200 mg PO BID PRN #30 cap 04/19/18 hydrocodone-acetaminophen See Rx Instructions .ROUTE 04/19/18 .COMPLEX PRN #30 tab hydroxyzine pamoate 25 mg PO Q4HR PRN #20 cap 04/19/18 Allergies Allergy/AdvReac Type Severity Reaction Status Date / Time cyclosporine Allergy Mild skin Verified 04/10/18 11:20 irritation in ear latex Allergy Rash Verified 04/10/18 11:20 Review of Systems Constitutional Constitutional: Denies fever(s) and Denies headache(s) ENT Ears, Nose, Mouth, and Throat: Denies headache(s), Denies sore throat and Reports throat swelling Comments: Swollen left side of tongue with the swelling in her throat Cardiovascular Cardiovascular: Denies chest pain, Denies palpitations and Denies dyspnea Respiratory Respiratory: Denies dyspnea Gastrointestinal Gastrointestinal: Denies abdominal pain, Denies nausea and Denies vomiting Genitourinary Genitourinary: Denies dysuria Musculoskeletal Musculoskeletal: Denies myalgias and Denies arthralgias Integumentary/Breasts Skin/Breast: Denies rash Neurologic Neurologic: Denies headache(s) Endocrine Endocrine: Denies palpitations Hematologic/Lymphatic Hematologic/Lymphatic: Denies easy bleeding and Denies easy bruising Allergic/Immunologic Allergic/Immunologic: Reports throat swelling [facility] Medical History Abnormality of coagulation (Acute) Anxiety and depression (Acute) Arthralgia (Acute) Breast implant rupture (Acute) Breast lump (Acute) Chronic neck pain (Acute) DDD (degenerative disc disease), lumbar (Acute) Fatigue (Acute) Hematuria, microscopic (Acute) Hemorrhoids (Acute) History of bronchitis (Acute) History of pneumonia (Acute ~2014) History of renal failure (Acute) History of steroid therapy (Acute) Hyperlipidemia (Acute) Hypertension (Acute) Hypoalbuminemia (Acute) Insomnia (Acute) Low back pain (Acute) Lumbar disc herniation with radiculopathy (Acute) Lumbar stenosis with neurogenic claudication (Acute) Lymphadenopathy (Acute) Nephrotic syndrome (Acute) Nocturnal leg cramps (Acute) Osteopenia (Acute) Proteinuria (Acute) Restless leg syndrome (Acute) Sacroiliitis (Acute) Seasonal allergies (Acute) Sedimentation rate elevation (Acute) Spondylolisthesis, lumbar region (Acute) Tachycardia (Acute) Tobacco use disorder (Acute) Surgical History (Updated 04/10/18 @ 11:18 by Brooklynn Leal RN) History of breast augmentation (Acute) S/P rotator cuff repair (Acute ~1993) Status post biopsy of kidney (Acute) Social History household members: spouse Smoking Status: Current every day smoker Social History household members: spouse Smoking Status: Current every day smoker Exam Initial Vital Signs Initial Vital Signs: Vital Signs Temperature 98.2 F 06/17/19 22:11 Pulse Rate 82 06/17/19 22:11 Respiratory Rate 16 06/17/19 22:11 Blood Pressure 144/87 H 06/17/19 22:11 Pulse Oximetry 96 06/17/19 22:11 Const General: cooperative, comfortable, well developed and well groomed Orientation: alert, awake and oriented x3 HENMT Head: normal to inspection and normocephalic Mouth: oral mucosae normal, lip normal, No tongue normal, No drooling and other (Swelling of left side of tongue) Teeth and gingiva: dentition normal Throat: posterior oropharynx normal Resp Effort & Inspection: normal respiratory effort Auscultation: clear to auscultation bilaterally Cardio Rate: regular rate Rhythm: regular rhythm Skin Lesions: no lesions Rashes: no rashes Neuro General: alert and awake Cognition: normal cognition Speech: other (Somewhat muffled speech) Gait: normal gait Extrem General: normal to inspection, capillary refill normal and No edema Course Orders Ordered: Sodium Chloride (Normal Saline 0.9%) 1,000 mls @ 125 mls/hr IV CONT ZANDRA Last Admin: 06/17/19 22:23 Dose: 125 mls/hr Documented by: SHRUTHI Discontinued Medications Diphenhydramine HCl (Benadryl) 25 mg IV NOW ONE Stop: 06/17/19 22:11 Last Admin: 06/17/19 22:18 Dose: 25 mg Documented by: SHRUTHI Famotidine (Pepcid) 20 mg in 50 mls @ 200 mls/hr IV NOW ONE Stop: 06/17/19 22:24 Last Infusion: 06/17/19 22:40 Dose: 0 mls/hr Documented by: Admin: 06/17/19 22:19 Dose: 200 mls/hr Documented by: SHRUTHI Methylprednisolone (Solu-Medrol 125 Mg Vial) 125 mg IV NOW ONE Stop: 06/17/19 22:11 Last Admin: 06/17/19 22:18 Dose: 125 mg Documented by: SHRUTHI Vital Signs Vital signs: Vital Signs - 8 hr 06/17/19 22:11 Temperature 98.2 F Pulse Rate 82 Respiratory Rate 16 Blood Pressure 144/87 H Pulse Oximetry 96 Medical Decision Making MDM Narrative Medical decision making narrative: Patient is maintaining her airway, has no skin manifestations. Does have isolated swelling to the left side of her tongue. Is tolerating secretions. Was given medications here in the emergency department which did improve her symptoms tremendously. They were not completely gone at the time of discharge however much improved. Had a long discussion with the patient regarding her symptoms. Did inform her that this could potentially be a reaction to a new exposure in potentially was the sausages she ate approximately 1 hour prior to the symptoms however I did have concern that this could potentially be angioedema also secondary to her lisinopril use. The fact that it did improve with medications does point against this however given the location of it and a lack of a definitive temporal relationship to a new exposure will have the patient stop the lisinopril in talk with her primary doctor before starting this again. We did discuss the use of Benadryl at home. Discussed return precautions and follow-up instructions. She expressed understanding and agreement with plan. Discharge Plan Departure Patient Disposition: Home Clinical Impression: Allergic reaction Qualifiers: Encounter type: initial encounter Qualified Code(s): T78.40XA - Allergy, unspecified, initial encounter Instructions: Angioedema, DI for General Allergic Reactions Activity Restrictions/Additional Instructions: I would expected improvement of your symptoms over the next 24-48 hours. Like we discussed, there is some concern that this may be caused by your lisinopril. I do recommend that you stop this medication and talk with your primary provider about placing you on another blood pressure medication. Return to the emergency department for any new or worsening symptoms. Prescriptions: No Action atorvastatin [Lipitor] 10 MG tablet 10 mg PO QDAY Qty: 0 RF: 0 potassium chloride [Klor-Con M20] 20 MEQ tablet,ER particles/crystals 1 tab PO DAILY Qty: 0 RF: 0 pramipexole [Mirapex] 0.125 MG tablet 0.125 mg PO SEEINSTR Qty: 0 RF: 0 lisinopril 5 mg Tablet 5 mg PO DAILY PRN (Reason: blood pressure control) RF: 0 gabapentin 100 mg Capsule 200 mg PO TID RF: 0 ascorbic acid (vitamin C) [Vitamin C] 1,000 mg Tablet 1,000 mg PO DAILY RF: 0 cholecalciferol (vitamin D3) [Vitamin D3] 5,000 unit Tablet 5,000 unit PO DIRECTED RF: 0 methylsulfonylmethane [MSM] 1,000 mg Tablet 3,000 mg PO DAILY RF: 0 omega 1-hvs-nfx-fish oil 1,000 mg (120 mg-180 mg) Capsule 1 cap PO DAILY RF: 0 calcium carb and citrate-vitD3 [Citracal + D Slow Release] 600 mg calcium- 500 unit Tablet Extended Release 2 tab PO DAILY RF: 0 coenzyme Q10 100 mg Tablet 100 mg PO DAILY RF: 0 atenolol 25 mg tablet 25 mg PO DAILY RF: 0 hydrocodone-acetaminophen 5-325 mg Tablet See Rx Instructions .ROUTE .COMPLEX PRN (Reason: Pain, Severe (7-10)) Qty: 30 RF: 0 hydroxyzine pamoate 25 mg Capsule 25 mg PO Q4HR PRN (Reason: spasms) Qty: 20 RF: 0 celecoxib [Celebrex] 200 mg Capsule 200 mg PO BID PRN (Reason: pain) Qty: 30 RF: 0 Referrals: Nolberto Us MD [Primary Care Provider] -
[2019-06-17 22:11] VITALS: BP 144/87; PULSE 82; RESP 16; TEMP 36.8; O2SAT 96; BMI 19.3
[2019-06-17] MEDS: diphenhydrAMINE 50 MG/ML VIAL 25 MG IV (22:18)
[2019-06-17] MEDS: methylPREDNISolone 125 MG/2 ML VIAL IV (22:18)
[2019-06-17] MEDS: FAMOTIDINE 20 MG/50 ML PIGGYBACK 200 MG IV (22:19)
[2019-06-17] MEDS: SODIUM CHLORIDE 0.9% 1,000 ML 125 ML IV (22:23)
[2019-06-17 23:41] VITALS: BP 134/68; PULSE 66; RESP 16; O2SAT 97
== END 2019-06-17 23:44 | disposition home or self-care (01) ==
PROVIDERS: Emergency Provider Emergency Medicine; PCP Student in an Organized Health Care Education/Training Program
DX: T78.40XA Allergy, unspecified, initial encounter (principal)
CPT/HCPCS: 36591; 96361; 96365; 96375; 99283; 99284; J1200; J2930

== ENCOUNTER → 2019-09-20 11:20 | Outpatient (CLI) | payer MEDICARE, OTHER, SELFPAY ==
[2018-04-18 11:21] VITALS: BMI 18.4
--- NOTE | 2019-09-20 | DI.RAD.S_ITS ---
PROCEDURE: XR JOINT SURVEY INDICATIONS: Upper Extremity joint survey TECHNIQUE: Single frontal view of the bilateral hands acquired. COMPARISON: None. FINDINGS: Bones: No fractures or dislocations. No suspicious bony lesions. Note is made of degenerative osteoarthritic change that is mild to moderate in severity over the right and left hands, at the interphalangeal joints and also to a lesser degree at the metacarpal-phalangeal joint of the second ray on the right. Soft tissues: No suspicious soft tissue calcifications. IMPRESSION: No trauma known, no erosive arthritis seen. 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 Dictated by: Esau Patel M.D. on 09/20/2019 at 12:54 Approved by: Esau Patel M.D. on 09/20/2019 at 12:55
== END ==
PROVIDERS: PCP Student in an Organized Health Care Education/Training Program; Visit Provider Internal Medicine Rheumatology
DX: M15.4 Erosive (osteo)arthritis (principal)
CPT/HCPCS: 77077

== ENCOUNTER → 2019-10-01 12:59 | Outpatient (ROUT) | payer MEDICARE, OTHER, SELFPAY ==
[2018-04-18 11:21] VITALS: BMI 18.4
[2019-10-01 13:13] LABS: Blood Urea Nitrogen 9 mg/dL (7-17); Calcium 9.7 mg/dL (8.4-10.2); Carbon Dioxide 27 mmol/L (22-32); Chloride 100 mmol/L (98-107); Estimated Glomerular Filt Rate > 60.0 mL/min (>60); Glucose 87 mg/dL (80-110); HEMOLYSIS < 15 (0-50); Sodium 137 mmol/L (137-145)
== END ==
PROVIDERS: PCP Student in an Organized Health Care Education/Training Program; Visit Provider Specialist
DX: N00-N99 Diseases of the genitourinary system (principal); E87.6 Hypokalemia
CPT/HCPCS: 80048

== ENCOUNTER 2020-04-24 12:00 | Outpatient (RCR) | payer MEDICARE, OTHER, SELFPAY ==
[2018-04-18 11:21] VITALS: BMI 18.4
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
--- NOTE | 2020-04-22 15:43 | PT.OPPOC ---
Physical, Occupational & Speech Therapy At [facility] Current Diagnoses Benign paroxysmal vertigo, left ear (04/22/20) Dizziness and giddiness (04/22/20) Visit Care Team Role Provider Type Linda De La Cruz MD Primary Care Provider Physician Specialty: Family Practice Address: [address] [place] [address], [id number] Email: [email or web address] Kashmir Fox MD Attending Provider Physician Referring Provider Specialty: Ear, Nose, Throat Address: [address] [place] [address], [facility] Email: [email or web address] Of [email or web address] PT-OP-T Assessment and Plan Start: 04/22/20 15:30 Freq: Status: Active Protocol: Document 04/22/20 12:00 DCW (Rec: 04/22/20 15:42 DCW [id number]) Physical Therapy Assessment Rehab Potential Rehabilitation Potential Excellent Evaluation Complexity Number of Personal Factors/Comorbidities 1-2 Number of Body Systems Impaired 1-2 Clinical Presentation at Evaluation Stable Impairments Impairments Balance,Vestibular Other Concerns Fall Risk Yes: Multiple falls over past two weeks Goals Three Impairment Positive left Jasmyne-Hallpike Marine Electrician Goal (LTG) Positional testing to be completely negative bilaterally. LTG Duration 05/23/20 Two Impairment Pt scores a 44% on the Dizziness Handicap Inventory Short Term Goal (STG) Pt to score <15% on the DHI to demonstrate decrease in functional deficits due to positional vertigo STG Duration 05/07/20 One Impairment Pt reports positional vertigo with bed mobility Senior Living Goal (LTG) Pt to perform bed mobility with no complaints of vertigo LTG Duration 05/23/20 Assessment Summary Assessment During left Combs-Hallpike test, pt complained of vertigo and demonstrated up-beating, torsional nystagmus lasting approximately 10 seconds, consistent with diagnosis of left-sided posterior canal BPPV, canalithiasis-type. Pt was treated with a left-sided Kassie maneuver. Pt complained of symptoms in the first and third position, which is normally indicative of a successful treatment. Further positional testing was negative. Pt was educated on BPPV, expectations for treatment, possible recurrence (BPPV has a ~50% recurrence rate in the five years following treatment), and post -Kassie restrictions. Pt to return within one week for a follow-up appointment, and intermittently afterward as indicated for treatment of BPPV. Physical Therapy Plan Frequency and Duration Frequency of Treatment 2x/Week Duration of Treatment 6 weeks Plan of Care Start Date 04/22/20 Plan of Care End Date 06/03/20 Next Visit Focus/Plan Next Note Type Treatment Note Next Visit Plan Positional testing and CRM as indicated Plan of Care Dates Plan of Care Start Date 04/22/20 Plan of Care End Date 06/03/20 Electronically Signed by: Jacob Taylor, PT 04/22/20 [id number] Please Sign and Return: I have reviewed this Plan of Care and certify that the skilled therapy services above are required to meet the patient?s needs. Physician Signature Date Printed Name and Credentials Clinical Instructor Signature Printed Name and Credentials
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
== END 2020-08-20 08:22 ==
LOC: PHYS 12:00
PROVIDERS: PCP Student in an Organized Health Care Education/Training Program; Referring Provider Otolaryngology; Visit Provider Otolaryngology
DX: H81.12 Benign paroxysmal vertigo, left ear (principal)
CPT/HCPCS: 95992; 97140; 97161; 97535

== ENCOUNTER → 2020-08-22 09:36 | Outpatient (CLI) | payer MEDICARE, OTHER, SELFPAY ==
[2018-04-18 11:21] VITALS: BMI 18.4
[2020-08-22 10:55] LABS: Add Manual Diff / Slide Review NO; Basophils Absolute Auto 100 /uL (0-100); Basophils Percent Auto 0.5 % (0-2); Eosinophils Absolute Auto 0 /uL (0-450); Eosinophils Percent Auto 0.3 % (2-4); Hematocrit 41.9 % (36-46); Hemoglobin 14.9 g/dL (12.0-16.0); Lymphocytes Absolute Auto 1600 /uL (1100-4500); Mean Corpuscular HGB Conc 35.5 % (30-36); Mean Corpuscular Hemoglobin 35.5 PG (26-34); Monocytes Absolute Auto 800 /uL (0-900); Monocytes Percent Auto 8.1 % (3-14); Neutrophils Absolute Auto 7500 /uL (1500-7000); Neutrophils Percent Auto 75.1 % (50-75); Platelet Count 235 X10^3/uL (150-400); Red Blood Cell Count 4.18 X10^6/uL (4.0-5.2)
[2020-08-22 11:18] LABS: Alanine Aminotransferase 30 IU/L (<35); Albumin 3.7 g/dL (3.5-5.0); Albumin Globulin Ratio 1.4 (1.0-2.8); Alkaline Phosphatase 64 U/L (38-126); Aspartate Aminotransferase 42 IU/L (14-36); BUN Creatinine Ratio 16.1 (6-22); Bilirubin Total 0.5 mg/dL (0.2-1.3); Blood Urea Nitrogen 9 mg/dL (7-17); Carbon Dioxide 33 mmol/L (22-32); Chloride 92 mmol/L (98-107); Estimated Glomerular Filt Rate > 60.0 mL/min (>60); Globulin 2.6 g/dL (1.7-4.1); Glucose 81 mg/dL (80-110); HEMOLYSIS < 15 (0-50); Sodium 131 mmol/L (137-145); Total Protein 6.3 g/dL (6.3-8.2)
[2020-08-22 11:23] LABS: Creatinine Urine Random 69.9 mg/dL; Protein (Total) Urine Random 34 mg/dL (0-12); Protein Creatinine Ratio Urine 0.48 GRAM/24H
== END ==
PROVIDERS: PCP Student in an Organized Health Care Education/Training Program; Referring Provider Specialist; Visit Provider Specialist
DX: N04.1 Nephrotic syndrome with focal and segmental glomerular lesions (principal)
CPT/HCPCS: 36415; 80053; 82570; 84156; 85025

== ENCOUNTER → 2020-10-07 10:19 | Outpatient (CLI) | payer MEDICARE, OTHER, SELFPAY ==
[2018-04-18 11:21] VITALS: BMI 18.4
[2020-10-07 11:26] LABS: Add Manual Diff / Slide Review NO; Basophils Absolute Auto 0 /uL (0-100); Basophils Percent Auto 0.3 % (0-2); Eosinophils Absolute Auto 100 /uL (0-450); Eosinophils Percent Auto 1.3 % (2-4); Hematocrit 43.6 % (36-46); Lymphocytes Absolute Auto 1900 /uL (1100-4500); Lymphocytes Percent Auto 24.7 % (25-40); Mean Corpuscular HGB Conc 34.4 % (30-36); Mean Corpuscular Hemoglobin 35.1 PG (26-34); Monocytes Absolute Auto 700 /uL (0-900); Monocytes Percent Auto 9.8 % (3-14); Neutrophils Absolute Auto 4800 /uL (1500-7000); Neutrophils Percent Auto 63.9 % (50-75); Platelet Count 222 X10^3/uL (150-400); Red Blood Cell Count 4.27 X10^6/uL (4.0-5.2); Red Cell Distribution Width 13.3 % (11.6-14.8); White Blood Cell Count 7.5 X10^3/uL (4.5-11.0)
[2020-10-07 11:41] LABS: Alanine Aminotransferase 46 IU/L (<35); Albumin 4.2 g/dL (3.5-5.0); Albumin Globulin Ratio 1.4 (1.0-2.8); Alkaline Phosphatase 74 U/L (38-126); Aspartate Aminotransferase 66 IU/L (14-36); BUN Creatinine Ratio 20.8 (6-22); Bilirubin Total 0.2 mg/dL (0.2-1.3); Blood Urea Nitrogen 10 mg/dL (7-17); Calcium 9.3 mg/dL (8.4-10.2); Carbon Dioxide 32 mmol/L (22-32); Chloride 95 mmol/L (98-107); Estimated Glomerular Filt Rate > 60.0 mL/min (>60); Glucose 83 mg/dL (80-110); HEMOLYSIS < 15 (0-50); Potassium 2.9 mmol/L (3.4-5.1); Sodium 135 mmol/L (137-145); Total Protein 7.2 g/dL (6.3-8.2)
[2020-10-07 17:18] LABS: Creatinine Urine Random 30.6 mg/dL; Protein (Total) Urine Random 26 mg/dL (0-12); Protein Creatinine Ratio Urine 0.84 GRAM/24H
== END ==
PROVIDERS: PCP Student in an Organized Health Care Education/Training Program; Referring Provider Student in an Organized Health Care Education/Training Program; Visit Provider Specialist
DX: N04.1 Nephrotic syndrome with focal and segmental glomerular lesions (principal)
CPT/HCPCS: 36415; 80053; 82570; 84156; 85025

== ENCOUNTER → 2020-10-30 15:01 | Outpatient (CLI) | payer MEDICARE, OTHER, SELFPAY ==
[2018-04-18 11:21] VITALS: BMI 18.4
[2020-10-30 16:23] LABS: Add Manual Diff / Slide Review NO; Basophils Absolute Auto 0 /uL (0-100); Basophils Percent Auto 0.3 % (0-2); Eosinophils Absolute Auto 100 /uL (0-450); Eosinophils Percent Auto 0.8 % (2-4); Hematocrit 40.9 % (36-46); Hemoglobin 14.4 g/dL (12.0-16.0); Lymphocytes Absolute Auto 1700 /uL (1100-4500); Lymphocytes Percent Auto 26.7 % (25-40); Mean Corpuscular HGB Conc 35.2 % (30-36); Mean Corpuscular Hemoglobin 35.9 PG (26-34); Mean Corpuscular Volume 101.8 fL (80-100); Monocytes Absolute Auto 500 /uL (0-900); Monocytes Percent Auto 8.4 % (3-14); Neutrophils Absolute Auto 3900 /uL (1500-7000); Neutrophils Percent Auto 63.8 % (50-75); Platelet Count 215 X10^3/uL (150-400); Red Blood Cell Count 4.01 X10^6/uL (4.0-5.2); Red Cell Distribution Width 12.8 % (11.6-14.8); White Blood Cell Count 6.2 X10^3/uL (4.5-11.0)
[2020-10-30 17:00] LABS: Creatinine Urine Random 25.3 mg/dL; Protein (Total) Urine Random 21 mg/dL (0-12); Protein Creatinine Ratio Urine 0.83 GRAM/24H
[2020-10-30 17:01] LABS: Alanine Aminotransferase 42 IU/L (<35); Albumin Globulin Ratio 1.3 (1.0-2.8); Alkaline Phosphatase 80 U/L (38-126); Aspartate Aminotransferase 62 IU/L (14-36); Bilirubin Total 0.2 mg/dL (0.2-1.3); Blood Urea Nitrogen 10 mg/dL (7-17); Calcium 9.6 mg/dL (8.4-10.2); Carbon Dioxide 27 mmol/L (22-32); Chloride 96 mmol/L (98-107); Estimated Glomerular Filt Rate > 60.0 mL/min (>60); Glucose 87 mg/dL (80-110); HEMOLYSIS < 15 (0-50); Potassium 3.6 mmol/L (3.4-5.1); Sodium 131 mmol/L (137-145)
== END ==
PROVIDERS: PCP Student in an Organized Health Care Education/Training Program; Referring Provider Specialist; Visit Provider Specialist
DX: N04.1 Nephrotic syndrome with focal and segmental glomerular lesions (principal)
CPT/HCPCS: 36415; 80053; 82570; 84156; 85025

== ENCOUNTER → 2021-01-27 07:55 | Outpatient (CLI) | payer MEDICARE, OTHER, SELFPAY ==
[2018-04-18 11:21] VITALS: BMI 18.4
[2021-01-27 08:52] LABS: Add Manual Diff / Slide Review NO; Basophils Absolute Auto 0 /uL (0-100); Basophils Percent Auto 0.4 % (0-2); Eosinophils Absolute Auto 100 /uL (0-450); Eosinophils Percent Auto 1.3 % (2-4); Hemoglobin 14.6 g/dL (12.0-16.0); Lymphocytes Absolute Auto 1900 /uL (1100-4500); Lymphocytes Percent Auto 24.6 % (25-40); Mean Corpuscular HGB Conc 35.5 % (30-36); Mean Corpuscular Volume 101.4 fL (80-100); Monocytes Absolute Auto 800 /uL (0-900); Monocytes Percent Auto 10.3 % (3-14); Neutrophils Absolute Auto 5000 /uL (1500-7000); Neutrophils Percent Auto 63.4 % (50-75); Platelet Count 219 X10^3/uL (150-400); Red Blood Cell Count 4.04 X10^6/uL (4.0-5.2); Red Cell Distribution Width 12.3 % (11.6-14.8); White Blood Cell Count 7.9 X10^3/uL (4.5-11.0)
[2021-01-27 09:10] LABS: Alanine Aminotransferase 39 IU/L (<35); Albumin 4.2 g/dL (3.5-5.0); Albumin Globulin Ratio 1.6 (1.0-2.8); Alkaline Phosphatase 81 U/L (38-126); Aspartate Aminotransferase 59 IU/L (14-36); BUN Creatinine Ratio 15.7 (6-22); Bilirubin Total 0.3 mg/dL (0.2-1.3); Blood Urea Nitrogen 8 mg/dL (7-17); Calcium 10.1 mg/dL (8.4-10.2); Carbon Dioxide 30 mmol/L (22-32); Chloride 93 mmol/L (98-107); Estimated Glomerular Filt Rate > 60.0 mL/min (>60); Globulin 2.7 g/dL (1.7-4.1); Glucose 82 mg/dL (80-110); HEMOLYSIS < 15 (0-50); Potassium 3.3 mmol/L (3.4-5.1); Sodium 131 mmol/L (137-145); Total Protein 6.9 g/dL (6.3-8.2)
[2021-01-27 10:49] LABS: Creatinine Urine Random 63.7 mg/dL; Protein (Total) Urine Random 53 mg/dL (0-12); Protein Creatinine Ratio Urine 0.83 GRAM/24H
== END ==
PROVIDERS: PCP Student in an Organized Health Care Education/Training Program; Referring Provider Specialist; Visit Provider Specialist
DX: N04.1 Nephrotic syndrome with focal and segmental glomerular lesions (principal)
CPT/HCPCS: 36415; 80053; 82570; 84156; 85025

== ENCOUNTER → 2021-05-05 08:30 | Outpatient (CLI) | payer MEDICARE, OTHER, SELFPAY ==
[2018-04-18 11:21] VITALS: BMI 18.4
[2021-05-05 09:52] LABS: Creatinine Urine Random 28.5 mg/dL; Protein (Total) Urine Random 20 mg/dL (0-12)
[2021-05-05 09:56] LABS: Add Manual Diff / Slide Review NO; Basophils Absolute Auto 0 /uL (0-100); Basophils Percent Auto 0.4 % (0-2); Eosinophils Absolute Auto 200 /uL (0-450); Eosinophils Percent Auto 2.7 % (2-4); Hematocrit 38.8 % (36-46); Hemoglobin 13.4 g/dL (12.0-16.0); Lymphocytes Absolute Auto 2000 /uL (1100-4500); Mean Corpuscular HGB Conc 34.5 % (30-36); Mean Corpuscular Hemoglobin 34.3 PG (26-34); Mean Corpuscular Volume 99.2 fL (80-100); Monocytes Absolute Auto 800 /uL (0-900); Monocytes Percent Auto 11.7 % (3-14); Neutrophils Absolute Auto 4100 /uL (1500-7000); Neutrophils Percent Auto 57.2 % (50-75); Platelet Count 214 X10^3/uL (150-400); Red Blood Cell Count 3.91 X10^6/uL (4.0-5.2); Red Cell Distribution Width 12.4 % (11.6-14.8); White Blood Cell Count 7.1 X10^3/uL (4.5-11.0)
[2021-05-05 10:34] LABS: Alanine Aminotransferase 18 IU/L (<35); Albumin 3.6 g/dL (3.5-5.0); Albumin Globulin Ratio 1.3 (1.0-2.8); Alkaline Phosphatase 81 U/L (38-126); Aspartate Aminotransferase 38 IU/L (14-36); BUN Creatinine Ratio 17.8 (6-22); Bilirubin Total 0.4 mg/dL (0.2-1.3); Blood Urea Nitrogen 8 mg/dL (7-17); Calcium 9.2 mg/dL (8.4-10.2); Carbon Dioxide 26 mmol/L (22-32); Chloride 91 mmol/L (98-107); Estimated Glomerular Filt Rate > 60.0 mL/min (>60); Globulin 2.7 g/dL (1.7-4.1); Glucose 79 mg/dL (80-110); HEMOLYSIS < 15 (0-50); Potassium 3.6 mmol/L (3.4-5.1); Sodium 127 mmol/L (137-145); Total Protein 6.3 g/dL (6.3-8.2)
== END ==
PROVIDERS: PCP Student in an Organized Health Care Education/Training Program; Referring Provider Specialist; Visit Provider Specialist
DX: N04.1 Nephrotic syndrome with focal and segmental glomerular lesions (principal)
CPT/HCPCS: 36415; 80053; 82570; 84156; 85025

== ENCOUNTER → 2021-07-27 08:38 | Outpatient (CLI) | payer MEDICARE, OTHER, SELFPAY ==
[2018-04-18 11:21] VITALS: BMI 18.4
[2021-07-27 10:14] LABS: Creatinine Urine Random 34.8 mg/dL; Protein (Total) Urine Random 19 mg/dL (0-12); Protein Creatinine Ratio Urine 0.54 GRAM/24H
[2021-07-27 10:16] LABS: Add Manual Diff / Slide Review NO; Basophils Absolute Auto 0 /uL (0-100); Basophils Percent Auto 0.4 % (0-2); Eosinophils Absolute Auto 100 /uL (0-450); Eosinophils Percent Auto 2.3 % (2-4); Hematocrit 39.9 % (36-46); Hemoglobin 14.1 g/dL (12.0-16.0); Lymphocytes Absolute Auto 1500 /uL (1100-4500); Lymphocytes Percent Auto 25.2 % (25-40); Mean Corpuscular HGB Conc 35.3 % (30-36); Mean Corpuscular Hemoglobin 34.4 PG (26-34); Mean Corpuscular Volume 97.4 fL (80-100); Monocytes Absolute Auto 700 /uL (0-900); Monocytes Percent Auto 11.2 % (3-14); Neutrophils Absolute Auto 3600 /uL (1500-7000); Neutrophils Percent Auto 60.9 % (50-75); Platelet Count 236 X10^3/uL (150-400); Red Cell Distribution Width 12.5 % (11.6-14.8); White Blood Cell Count 5.8 X10^3/uL (4.5-11.0)
[2021-07-27 11:08] LABS: Alanine Aminotransferase 27 IU/L (<35); Albumin 4.2 g/dL (3.5-5.0); Albumin Globulin Ratio 1.7 (1.0-2.8); Alkaline Phosphatase 89 U/L (38-126); Aspartate Aminotransferase 44 IU/L (14-36); BUN Creatinine Ratio 17.9 (6-22); Bilirubin Total 0.3 mg/dL (0.2-1.3); Blood Urea Nitrogen 10 mg/dL (7-17); Calcium 9.8 mg/dL (8.4-10.2); Carbon Dioxide 26 mmol/L (22-32); Chloride 89 mmol/L (98-107); Estimated Glomerular Filt Rate > 60.0 mL/min (>60); Globulin 2.5 g/dL (1.7-4.1); Glucose 79 mg/dL (80-110); HEMOLYSIS < 15 (0-50); Potassium 3.4 mmol/L (3.4-5.1); Sodium 126 mmol/L (137-145); Total Protein 6.7 g/dL (6.3-8.2)
== END ==
PROVIDERS: PCP Student in an Organized Health Care Education/Training Program; Referring Provider Specialist; Visit Provider Specialist
DX: N04.1 Nephrotic syndrome with focal and segmental glomerular lesions (principal)
CPT/HCPCS: 36415; 80053; 82570; 84156; 85025

== ENCOUNTER → 2021-10-26 13:32 | Outpatient (CLI) | payer MEDICARE, OTHER, SELFPAY ==
[2018-04-18 11:21] VITALS: BMI 18.4
[2021-10-26 15:54] LABS: COVID19 -Nasal RAPID Negative (Negative)
== END ==
PROVIDERS: PCP Student in an Organized Health Care Education/Training Program; Referring Provider Family Medicine Sleep Medicine; Visit Provider Family Medicine Sleep Medicine
DX: Z20.822 Contact with and (suspected) exposure to COVID-19 (principal)
CPT/HCPCS: 87635; C9803

== ENCOUNTER 2021-10-28 12:41 | Day surgery (SDC) | payer MEDICARE, OTHER, SELFPAY ==
[2018-04-18 11:21] VITALS: BMI 18.4
--- NOTE | 2021-10-27 20:03 | PM.PREOP ---
Pre-operative Note COVID-19 COVID-19 status: Negative Criteria for continued procedure: Expected advancement of disease process, Possibility delay results in more complex future surgery or treatment, Increased loss of function, Delay expected to result in less-positive ultimate med/surg outcome and Non-surgical alternatives not available or appropriate per current SOC Interval Note History & Physical reviewed/Exam performed by Physician: Yes Changes to H&P: No
--- NOTE | 2021-10-27 20:04 | PM.OP.1 ---
Operative Date/Time/Diagnoses Date of procedure: 10/28/21 Time of procedure: 13:15 Procedure & Clinicians Procedure: Preoperative diagnoses: 1. Right complex surgery with use of capsular dye. 2. Mature or advanced nuclear sclerotic and cortical cataract with poor visibility of the anterior capsule increasing surgical risks of complications. 3. Rheumatoid arthritis 4. Hypertension 5. Dry eye syndrome Postoperative diagnoses: 1.Right Complex surgery with use of capsular dye, 2. Placement of a posterior chamber intraocular lens implant. Surgeon: Joselin Manriquez MD Complications: none Specimen: None Implant: DIBOO+25.5 Blood loss: None Anesthesia: Retrobulbar with monitored standby. Description of procedure: Dictated by: Joselin Manriquez MD Post operative diagnoses: 1. Right cataract removed with use of capsular dye . 2. Placement of a posterior chamber intraocular lens. Procedure: Phacoemulsification with posterior chamber intraocular lens implant Surgeon: Joselin Manriquez MD Blood loss: None Anesthesia: Retrobulbar with monitored standby Description of procedure: Patient has presented with decreased vision due to cataract which is affecting activities of daily living especially driving. The patient wants surgery to improve vision. Her surgery has been delayed due to the COVID-19 epidemic and is causing her increased symptoms problems with driving and reading and she wishes to proceed with surgery, toimprove safety capsular dye will repeat required. understand the extra risk of surgery during the COVID-19 epidemic and wished to proceed. She is a high hyperopic and has required Restasis treatment to improve dry eye for surgery. The patient has tested negative for active COVID-19 virus within 72 hours of the procedure. The patient was taken to the operating room and given IV sedation. A retrobulbar block consisting of 6 cc of 2% xylocaine without epinephrine mixed half and half with 0.5% Marcaine with 1 cc of hyaluronidase added is placed between the medial and lateral 1/3 of the inferior orbital rim. The eye is manually massaged for 30 sec, prepped using Betadine solution, and draped in the usual sterile fashion. Temporal approach was made, a 1 mm side-port incision was performed 90 degrees from the planned corneal wound. Phenylephrine 1.5% mixed with 1% xylocaine 0.2 cc was placed into the anterior chamber. [An air bubble was placed and capsular blue dye was placed to improve visibility of the anterior capsule. The dye was irrigated out to reduce bubbles. ]Endocoat followed by Mark was then placed. A 2.6 mm clear incision with a 2.6 mm blade was placed. A 360 degree capsulorrhexis style capsulotomy was then performed with a cystitome needle on a Healon greatly aided by the capsular dye. Hydrodelineation and hydrodissection were performed. The phacoemulsification unit is introduced, and sculpting used to groove the central lens. It is then removed in chopping mode. Epi nucleus is removed with epinuclear mode and irrigation aspiration was used to remove the peripheral cortex. The posterior capsule is polished. The intraocular lens is selected, inspected, power confirmed, and placed in the posterior chamber. The wound was stromally hydrated and tested for leaks, there was none and was left sutureless. Intracameral moxifloxacin 0.1 cc was placed into the anterior chamber. Kenalog 0.2 cc was placed in the superior subconjunctival space. A drop of antibiotic and was placed and the eye was patched and shielded. The patient was stable and returned to the recovery room in excellent condition. Dictated by: Joselin Manriquez MD Copy to: [facility] Same procedure as scheduled: Yes
[2021-10-28] MEDS: PROPARACAINE 0.5% OPHTH SOL 2 DROPS EYE-OP (13:05)
[2021-10-28] MEDS: CATARACT EYE COMPOUND (10 DROPS/SYRINGE) 3 DROPS EYE-OP (13:05)
[2021-10-28 13:20] VITALS: BP 136/74; PULSE 75; RESP 18; TEMP 36.4; O2SAT 98; BMI 23.1
[2021-10-28] MEDS: ERYTHROMYCIN OPHTH 1 GM OINT 1 APPLIC EYE-RIGHT (15:14)
[2021-10-28] MEDS: HYALURONATE SODIUM 30 MG-10 MG/ML SYRINGES 1 BOX INTRAOCULA (15:14)
[2021-10-28] MEDS: PHENYLEPHRINE/LIDOCAINE VIAL (OR) 0.2 ML EYE-OP (15:15)
[2021-10-28] MEDS: TRYPAN BLUE 0.5 ML SYRINGE INJ (15:15)
[2021-10-28] MEDS: MOXIFLOXACIN INJ 4 MG/0.8 ML VIAL 0.5 MG EYE-OP (15:15)
[2021-10-28] MEDS: TRIAMCINOLONE 50 MG/5 ML VIAL INJ (15:15)
[2021-10-28] MEDS: BALANCED SALT IRRIG SOLN NO.2 500 ML, EPINEPHrine 1 MG IRR (15:16)
[2021-10-28] MEDS: LIDOCAINE 2% 4 ML, BUPIVACAINE 0.5% (PF) 4 ML, HYALURONIDASE 150 UNIT INJ (15:16)
[2021-10-28 15:56] VITALS: BP 144/78; PULSE 56; RESP 16; TEMP 36.6; O2SAT 98
--- NOTE | 2021-10-28 16:01 | SUR.PHASEII ---
Pt ready to go, left unit in stable condition.
== END 2021-10-28 16:02 | disposition home or self-care (01) ==
LOC: OR 12:43
PROVIDERS: PCP Family Medicine; Referring Provider Ophthalmology; Visit Provider Ophthalmology
DX: H25.811 Combined forms of age-related cataract, right eye (principal); H04.129 Dry eye syndrome of unspecified lacrimal gland; I10 Essential (primary) hypertension
CPT/HCPCS: 66984; J0171; J2704; J3301; J3470

== ENCOUNTER → 2021-11-09 11:00 | Outpatient (CLI) | payer MEDICARE, OTHER, SELFPAY ==
[2018-04-18 11:21] VITALS: BMI 18.4
[2021-11-09 12:42] LABS: COVID19 -Nasal RAPID Negative (Negative)
== END ==
PROVIDERS: PCP Family Medicine; Visit Provider Family Medicine Sleep Medicine
DX: Z20.822 Contact with and (suspected) exposure to COVID-19 (principal)
CPT/HCPCS: 87635; C9803

== ENCOUNTER 2021-11-11 08:00 | Day surgery (SDC) | payer MEDICARE, OTHER, SELFPAY ==
[2018-04-18 11:21] VITALS: BMI 18.4
--- NOTE | 2021-11-11 08:08 | PM.OP.1 ---
Operative Date/Time/Diagnoses Date of procedure: 11/11/21 Time of procedure: 09:45 Procedure & Clinicians Procedure: Preoperative diagnoses: 1. Left complex surgery with use of capsular dye. 2. Mature or advanced nuclear sclerotic and cortical cataract with poor visibility of the anterior capsule increasing surgical risks of complications. 3. Rheumatoid arthritis 4. Hypertension Postoperative diagnoses: 1. Left Complex surgery with use of capsular dye, 2. Placement of a posterior chamber intraocular lens implant. Surgeon: Joselin Manriquez MD Complications: none Specimen: None Implant: DIBOO +24.0 Blood loss: None Anesthesia: Retrobulbar with monitored standby. Description of procedure: Dictated by: Joselin Manriquez MD Post operative diagnoses: 1. Left cataract removed with use of capsular dye . 2. Placement of a posterior chamber intraocular lens. Procedure: Phacoemulsification with posterior chamber intraocular lens implant Surgeon: Joselin Manriqeuz MD Blood loss: None Anesthesia: Retrobulbar with monitored standby Description of procedure: Patient has presented with decreased vision due to cataract which is affecting activities of daily living especially driving. The patient wants surgery to improve vision. They understand the extra risk of surgery during the COVID-19 epidemic and wished to proceed. She has had successful cataract surgery in her left eye and due to her extreme difference in prescription is having problems with balance and is worried about falling. She wishes to proceed with a distance target. It is advanced cataract and will require capsular dye for safety. The patient has tested negative for active COVID-19 virus within 72 hours of the procedure. The patient was taken to the operating room and given IV sedation. A retrobulbar block consisting of 6 cc of 2% xylocaine without epinephrine mixed half and half with 0.5% Marcaine with 1 cc of hyaluronidase added is placed between the medial and lateral 1/3 of the inferior orbital rim. The eye is manually massaged for 30 sec, prepped using Betadine solution, and draped in the usual sterile fashion. Temporal approach was made, a 1 mm side-port incision was performed 90 degrees from the planned corneal wound. Phenylephrine 1.5% mixed with 1% xylocaine 0.2 cc was placed into the anterior chamber. [An air bubble was placed and capsular blue dye was placed to improve visibility of the anterior capsule. The dye was irrigated out to reduce bubbles. Endocoat followed by Healon was then placed. A 2.6 mm clear incision with a 2.6 mm blade was placed. A 360 degree capsulorrhexis style capsulotomy was then performed with a cystitome needle on a Healon greatly aided by the capsular dye. Hydrodelineation and hydrodissection were performed. The phacoemulsification unit is introduced, and sculpting used to groove the central lens. It is then removed in chopping mode. Epi nucleus is removed with epinuclear mode and irrigation aspiration was used to remove the peripheral cortex. The posterior capsule is polished. The intraocular lens is selected, inspected, power confirmed, and placed in the posterior chamber. The wound was stromally hydrated and tested for leaks, there was none and was left sutureless. Intracameral moxifloxacin 0.1 cc was placed into the anterior chamber. Kenalog 0.2 cc was placed in the superior subconjunctival space. A drop of antibiotic and was placed and the eye was patched and shielded. The patient was stable and returned to the recovery room in excellent condition. Dictated by: Joselin Manriquez MD Copy to: [facility] Same procedure as scheduled: Yes
[2021-11-11] MEDS: PROPARACAINE 0.5% OPHTH SOL 2 DROPS EYE-OP (08:21)
[2021-11-11] MEDS: CATARACT EYE COMPOUND (10 DROPS/SYRINGE) 3 DROPS EYE-OP (08:23)
[2021-11-11 08:25] VITALS: BP 134/71; PULSE 70; RESP 16; TEMP 37.2; O2SAT 98; BMI 23.1
--- NOTE | 2021-11-11 09:04 | SUR.OPER ---
Supine on eye stretcher, head on extension cradle secured with tape. Arms tucked at sides with blanket. Pillow under knees.
[2021-11-11] MEDS: MOXIFLOXACIN INJ 4 MG/0.8 ML VIAL 0.5 MG EYE-OP (09:43)
[2021-11-11] MEDS: HYALURONATE SODIUM 30 MG-10 MG/ML SYRINGES 1 BOX INTRAOCULA (09:43)
[2021-11-11] MEDS: PHENYLEPHRINE/LIDOCAINE VIAL (OR) 0.2 ML EYE-OP (09:43)
[2021-11-11] MEDS: TRIAMCINOLONE 50 MG/5 ML VIAL INJ (09:44)
[2021-11-11] MEDS: LIDOCAINE 2% 4 ML, BUPIVACAINE 0.5% (PF) 4 ML, HYALURONIDASE 150 UNIT INJ (09:46)
[2021-11-11] MEDS: BALANCED SALT IRRIG SOLN NO.2 500 ML, EPINEPHrine 1 MG IRR (09:47)
[2021-11-11] MEDS: TRYPAN BLUE 0.5 ML SYRINGE INJ (09:48)
[2021-11-11 10:17] VITALS: BP 133/73; PULSE 64; RESP 16; TEMP 36.6; O2SAT 98
--- NOTE | 2021-11-11 10:20 | SUR.PHASEII ---
Violeta called, available for pick and shovel worker, pt ready to go left unit in stable condition.
== END 2021-11-11 10:26 | disposition home or self-care (01) ==
LOC: OR 08:01
PROVIDERS: PCP Family Medicine; Referring Provider Ophthalmology; Visit Provider Ophthalmology
PROC: (CPT 66984; principal; 2021-11-11 09:45)
DX: H25.12 Age-related nuclear cataract, left eye (principal); I10 Essential (primary) hypertension; E78.5 Hyperlipidemia, unspecified; M06.9 Rheumatoid arthritis, unspecified
CPT/HCPCS: 66984; J0171; J2250; J3301; J3470

== ENCOUNTER → 2021-11-16 10:35 | Outpatient (CLI) | payer MEDICARE, OTHER, SELFPAY ==
[2018-04-18 11:21] VITALS: BMI 18.4
[2021-11-16 10:59] LABS: Appearance Urine UA CLEAR; Bilirubin Urine UA NEGATIVE (NEGATIVE); Color Urine UA YELLOW; Glucose Urine UA NEGATIVE (Negative); Ketones Urine UA NEGATIVE (NEGATIVE); Leukocyte Esterase Urine UA NEGATIVE (NEGATIVE); Nitrite Urine UA NEGATIVE (Negative); Occult Blood Urine UA NEGATIVE (Negative); Protein Urine UA NEGATIVE (Negative); Urobilinogen Urine UA 0.2 E.U./dL (0.2)
[2021-11-16 11:16] LABS: Protein (Total) Urine Random 26 mg/dL (0-12); Protein Creatinine Ratio Urine 1.08 GRAM/24H
[2021-11-16 11:20] LABS: Bacteria Urine Occasional (0-1); Culture Indicated Urine Cult Not Indicated; RBC Urine None Seen (0-5/HPF); Transitional Epi Cells Urine 0-1/HPF (0-5/HPF); WBC Urine 0-1/HPF (0-5/HPF)
[2021-11-16 12:12] LABS: Alanine Aminotransferase 26 IU/L (<35); Albumin 4.1 g/dL (3.5-5.0); Albumin Globulin Ratio 1.4 (1.0-2.8); Alkaline Phosphatase 83 U/L (38-126); Aspartate Aminotransferase 43 IU/L (14-36); BUN Creatinine Ratio 19.4 (6-22); Bilirubin Total 0.2 mg/dL (0.2-1.3); Blood Urea Nitrogen 12 mg/dL (7-17); Calcium 9.3 mg/dL (8.4-10.2); Carbon Dioxide 29 mmol/L (22-32); Chloride 98 mmol/L (98-107); Estimated Glomerular Filt Rate > 60.0 mL/min (>60); Globulin 2.9 g/dL (1.7-4.1); Glucose 81 mg/dL (80-110); HEMOLYSIS < 15 (0-50); Potassium 4.6 mmol/L (3.4-5.1); Sodium 134 mmol/L (137-145)
== END ==
PROVIDERS: PCP Family Medicine; Referring Provider Specialist; Visit Provider Specialist
DX: N04.1 Nephrotic syndrome with focal and segmental glomerular lesions (principal)
CPT/HCPCS: 36415; 80053; 81001; 82570; 84156

== ENCOUNTER 2022-01-14 22:26 | Emergency (ER) | payer MEDICARE, OTHER, SELFPAY ==
[2018-04-18 11:21] VITALS: BMI 18.4
[2022-01-14 22:38] VITALS: BP 124/66; PULSE 74; RESP 18; TEMP 36.4; O2SAT 97; BMI 23.1
--- NOTE | 2022-01-15 | ED.BACK ---
HPI - Back Pain/Injury General Chief Complaint: Back Pain/Injury Stated Complaint: back pain Time Seen by Provider: 01/14/22 23:40 Source: patient and family History of Present Illness HPI Narrative: Patient is a 76-year-old female here for evaluation of left-sided lower paraspinal tenderness. She states that the symptoms started after she was vacuuming under her bed. There was not 1 specific incident that caused the discomfort. She felt very sore afterwards but it was not until later on when she was turning over in bed when the pain became somewhat worse. She is not having any urinary symptoms. No fevers. Related Data Home Medications Medication Instructions Recorded Confirmed atorvastatin 10 mg tablet (Lipitor) 10 mg PO QDAY #0 12/06/16 11/11/21 potassium chloride 20 mEq 1 tab PO DAILY #0 12/06/16 11/11/21 tablet,extended release(part/cryst) (Klor-Con M) ascorbic acid (vitamin C) 1,000 mg 1,000 mg PO DAILY 04/10/18 11/11/21 tablet (Vitamin C) calcium carb,cit ER 600 mg-vit D3 2 tab PO DAILY 04/10/18 11/11/21 12.5 mcg (500 unit) tablet,ext.rel (Citracal-D3 Slow Release) cholecalciferol (vitamin D3) 125 5,000 unit PO DIRECTED 04/10/18 11/11/21 mcg (5,000 unit) tablet (Vitamin D3) coenzyme Q10 100 mg tablet 100 mg PO DAILY 04/10/18 11/11/21 omega 3-rgo-yrz-fish oil 1,000 mg 1 cap PO DAILY 04/10/18 11/11/21 (120 mg-180 mg) capsule atenolol 25 mg tablet 25 mg PO DAILY 04/18/18 11/11/21 diltiazem HCl 120 mg 120 mg PO DAILY 11/11/21 11/11/21 capsule,extended release 24 hr pramipexole 0.125 mg tablet 0.125 mg PO BEDTIME 11/11/21 11/11/21 Previous Rx's Medication Instructions Recorded cyclobenzaprine 10 mg tablet 10 mg PO TID PRN #14 tab 01/15/22 Allergies Allergy/AdvReac Type Severity Reaction Status Date / Time lisinopril Allergy Severe Swelling Verified 10/28/21 13:09 of Lip/Tongue/Throat cyclosporine Allergy Mild skin Verified 10/28/21 13:08 irritation in ear latex Allergy Rash Verified 10/28/21 13:08 losartan Allergy Verified 01/14/22 22:38 adhesive AdvReac Mild Rash Verified 11/11/21 08:12 adhesive tape AdvReac Mild Rash Verified 11/11/21 08:12 hydroxyzine [From Vistaril] AdvReac Mild ITCHING Verified 11/11/21 08:18 Review of Systems Genitourinary Genitourinary: Reports system reviewed and no additional complaints, except as documented Musculoskeletal Musculoskeletal: Reports system reviewed and no additional complaints, except as documented Neurologic Neurologic: Reports system reviewed and no additional complaints, except as documented Hematologic/Lymphatic On Anticoagulants: No Patient History Medical History Abnormality of coagulation Anxiety and depression Arthralgia Breast implant rupture Breast lump Chronic neck pain DDD (degenerative disc disease), lumbar Fatigue Hematuria, microscopic Hemorrhoids History of bronchitis History of pneumonia (~2014) History of renal failure History of steroid therapy Hyperlipidemia Hypertension Hypoalbuminemia Insomnia Low back pain Lumbar disc herniation with radiculopathy Lumbar stenosis with neurogenic claudication Lymphadenopathy Nephrotic syndrome Nocturnal leg cramps Osteopenia Proteinuria Restless leg syndrome Sacroiliitis Seasonal allergies Sedimentation rate elevation Spondylolisthesis, lumbar region Tachycardia Tobacco use disorder Surgical History (Updated 04/10/18 @ 11:18 by Brooklynn Leal RN) History of breast augmentation S/P rotator cuff repair (~1993) Status post biopsy of kidney Social History household members: spouse Smoking Status: Current every day smoker alcohol intake: current Smoking Status: Current every day smoker tobacco type: cigarettes alcohol intake frequency: 3 or more drinks per day Alcohol type: hard liquor Substance Use Type: does not use Exam Initial Vital Signs Initial Vital Signs: Vital Signs Temperature 97.6 F 01/14/22 22:38 Pulse Rate 74 01/14/22 22:38 Respiratory Rate 18 01/14/22 22:38 Blood Pressure 124/66 01/14/22 22:38 Pulse Oximetry 97 01/14/22 22:38 HENMT Head: normal to inspection and normocephalic Resp Effort & Inspection: normal respiratory effort Cardio Rate: regular rate Back/Spine/Pelvis Other: No cervical spine tenderness. No thoracic spine tenderness. No midline lumbar spine tenderness. She does have significant fullness of the paraspinal muscles on the left where she is having the discomfort. Neuro General: patient alert, patient awake and moves all extremities Extrem General: normal to inspection and capillary refill normal Course Orders Ordered: Discontinued Medications Hydrocodone Bitart/Acetaminophen (Hydrocodone/Acet 5/325 Prepack) 1 bottle MISC SEEINSTR ONE Stop: 01/15/22 00:02 Last Admin: 01/15/22 00:07 Dose: 1 bottle Documented by: DAVID Cyclobenzaprine HCl (Cyclobenzaprine 10 Mg Prepack) 1 bottle MISC SEEINSTR ONE Stop: 01/15/22 00:02 Last Admin: 01/15/22 00:07 Dose: 1 bottle Documented by: DAVID Vital Signs Vital signs: Vital Signs - 8 hr 01/14/22 22:38 01/15/22 00:13 Temperature 97.6 F Pulse Rate 74 72 Respiratory Rate 18 18 Blood Pressure 124/66 120/64 Pulse Oximetry 97 98 MDM - Back Pain/Injury MDM Narrative Medical decision making narrative: Patient's physical exam clearly a paraspinal muscle spasm on the left. Was able to reproduce the discomfort by pushing on the area. I do feel we can hold on any radiologic studies for now as I do feel fracture/infection/cauda quite is unlikely. Was sent home with symptom treatment. We also discussed conservative measures such as heat and I symptoms size velasco stretching. She was given strict return precautions. She expressed understanding and agreement with Discharge Plan Departure Patient Disposition: Home Clinical Impression: Strain of lumbar region Instructions: DI for Low Back Pain Activity Restrictions/Additional Instructions: Take the medications as directed. You can also try other conservative measures such as heat/ice/massage and light stretching. Contact your primary doctor for a follow-up. Return to the emergency department for any new or worsening symptoms. Prescriptions: New cyclobenzaprine 10 mg tablet 10 mg PO TID PRN (Reason: muscle spasm) Qty: 14 0RF No Action atorvastatin [Lipitor] 10 MG tablet 10 mg PO QDAY Qty: 0 0RF potassium chloride [Klor-Con M20] 20 MEQ tablet,ER particles/crystals 1 tab PO DAILY Qty: 0 0RF pramipexole 0.125 mg Tablet 0.125 mg PO BEDTIME 0RF Rx Instructions: 2 tabs at bedtime diltiazem HCl 120 mg Capsule,Extended Release 24hr 120 mg PO DAILY 0RF ascorbic acid (vitamin C) [Vitamin C] 1,000 mg Tablet 1,000 mg PO DAILY 0RF cholecalciferol (vitamin D3) [Vitamin D3] 5,000 unit Tablet 5,000 unit PO DIRECTED 0RF omega 9-jjz-lbu-fish oil 1,000 mg (120 mg-180 mg) Capsule 1 cap PO DAILY 0RF calcium carb and citrate-vitD3 [Citracal-D3 Slow Release] 600 mg calcium- 500 unit Tablet Extended Release 2 tab PO DAILY 0RF coenzyme Q10 100 mg Tablet 100 mg PO DAILY 0RF atenolol 25 mg tablet 25 mg PO DAILY 0RF Referrals: Jimi Gan MD [Primary Care Provider] -
[2022-01-15] MEDS: CYCLOBENZAPRINE 10 MG PREPACK 1 BOTTLE MISC (00:07)
[2022-01-15] MEDS: HYDROCODONE/ACET 5/325 PREPACK 1 BOTTLE MISC (00:07)
[2022-01-15 00:13] VITALS: BP 120/64; PULSE 72; RESP 18; O2SAT 98
== END 2022-01-15 00:14 | disposition home or self-care (01) ==
PROVIDERS: Emergency Provider Emergency Medicine; PCP Family Medicine
DX: S39.012A Strain of muscle, fascia and tendon of lower back, initial encounter (principal); X58.XXXA Exposure to other specified factors, initial encounter
CPT/HCPCS: 99281; 99282

== ENCOUNTER → 2022-03-05 09:42 | Outpatient (CLI) | payer MEDICARE, OTHER, SELFPAY ==
[2018-04-18 11:21] VITALS: BMI 18.4
[2022-03-05 10:16] LABS: Appearance Urine UA CLEAR; Bilirubin Urine UA NEGATIVE (NEGATIVE); Color Urine UA YELLOW; Glucose Urine UA NEGATIVE (Negative); Ketones Urine UA NEGATIVE (NEGATIVE); Leukocyte Esterase Urine UA NEGATIVE (NEGATIVE); Nitrite Urine UA NEGATIVE (Negative); Occult Blood Urine UA NEGATIVE (Negative); Protein Urine UA NEGATIVE (Negative); Specific Gravity Urine UA <=1.005 (1.000-1.035); Urobilinogen Urine UA 0.2 E.U./dL (0.2)
[2022-03-05 10:21] LABS: RBC Urine None Seen (0-5/HPF); WBC Urine None Seen (0-5/HPF)
[2022-03-05 10:22] LABS: Bacteria Urine None Seen; Culture Indicated Urine Cult Not Indicated; Protein (Total) Urine Random 14 mg/dL (0-12); Protein Creatinine Ratio Urine 0.45 GRAM/24H; Urine Comments Microscopic Normal
[2022-03-05 11:31] LABS: Alanine Aminotransferase 21 IU/L (<35); Albumin 4.2 g/dL (3.5-5.0); Albumin Globulin Ratio 1.3 (1.0-2.8); Alkaline Phosphatase 88 U/L (38-126); Aspartate Aminotransferase 36 IU/L (14-36); BUN Creatinine Ratio 15.2 (6-22); Bilirubin Total 0.4 mg/dL (0.2-1.3); Blood Urea Nitrogen 10 mg/dL (7-17); Calcium 9.2 mg/dL (8.4-10.2); Carbon Dioxide 28 mmol/L (22-32); Chloride 99 mmol/L (98-107); Estimated Glomerular Filt Rate > 60 mL/min (>60); Globulin 3.3 g/dL (1.7-4.1); Glucose 84 mg/dL (80-110); HEMOLYSIS < 15 (0-50); Potassium 4.1 mmol/L (3.4-5.1); Sodium 135 mmol/L (137-145); Total Protein 7.5 g/dL (6.3-8.2)
== END ==
PROVIDERS: PCP Family Medicine; Referring Provider Specialist; Visit Provider Specialist
DX: N04.1 Nephrotic syndrome with focal and segmental glomerular lesions (principal)
CPT/HCPCS: 36415; 80053; 81001; 82570; 84156

== ENCOUNTER → 2022-04-06 11:30 | Outpatient (CLI) | payer MEDICARE, OTHER, SELFPAY ==
[2018-04-18 11:21] VITALS: BMI 18.4
--- NOTE | 2022-04-06 | DI.MRI.S_ITS ---
PROCEDURE: MR LUMBAR SPINE WO CON INDICATIONS: Spinal stenosis, lumbar region without neurogenic TECHNIQUE: Noncontrast sagittal T1 spin echo and T2 fast echo, sagittal STIR, and T2 fast spin echo through the lumbar spine. In cases with scoliosis, additional coronal T2 fast spin echo may be performed. COMPARISON: [facility], MR, L-SPINE WITHOUT CONTRAST, 10/04/2017, 7:50. [facility], CR, XR LUMBAR SPINE 2 OR 3 VIEWS, 01/19/2022, 10:29. FINDINGS: Image quality: Excellent. Alignment and Curvature: There is minimal retrolisthesis at L1-L2. Mild retrolisthesis is seen at L2-L3. Bone Marrow: Marrow is of normal overall signal. No acute vertebral body compression fractures. Spinal Cord: Conus medullaris terminates at the L1 level. Visualized cord demonstrates normal signal and size. Paraspinous Soft Tissues: No paravertebral masses. T11-T12: Mild loss of disc height is seen. Loss of disc signal is seen. There is edema seen involving the superior endplate of T12 at the inferior endplate of T1. There is a Schmorl's node seen at the superior endplate of T12, which is new compared to 2018. No significant neural foraminal or central canal narrowing can be seen. T12-L1: Normal appearance. L1-L2: Mild loss of disc height is seen. Loss of disc signal is seen. Mild to moderate disc bulge is seen. Macrometastasis set No significant neural foraminal or central canal narrowing can be seen. These imaging findings have progressed compared to the prior study. L2-L3: At least moderate loss of disc height and disc signal can be seen. Moderate generalized disc bulge is seen. Mild facet joint hypertrophy is seen. There is moderate right-sided and mild left-sided neural foraminal narrowing. Mild to moderate central canal narrowing is seen. No significant change from the prior. L3-L4: Postoperative changes are seen at this level, with right-sided pedicle screws and vertical fixation rods. There is a disc spacer seen. There is also likely removal of the posterior elements. Mild to moderate disc bulge is seen. There is [id number]-vy-bubsgasd left-sided and moderate right-sided neural foraminal narrowing. No significant central canal is seen. This level is clearly improved compared to the preoperative 2018 lumbar MRI. L4-L5: The disc height is well-preserved. Loss of disc signal is seen at this level. Mild generalized disc bulge is seen. Moderate to prominent facet hypertrophy is seen. There is at least moderate left-sided and mild right-sided neural foraminal narrowing. Moderate central canal narrowing is seen. There is mild progression of degenerative change compared to the prior. L5-S1: The disc height and disc signal are relatively well preserved. No significant disc bulge is seen. Mild to moderate right-sided and mild left-sided facet arthropathy can be seen. No significant neural foraminal or central canal narrowing can be seen. Stable from the prior study. IMPRESSION: Postoperative change at L3-L4, with improvement at this level compared to prior 2018 MRI. Endplate edema can be seen at T11-T12, which is most likely related to a subacute Schmorl's node with degenerative change. Differential diagnosis includes discitis/osteomyelitis, at this is considered to be less likely based upon the imaging appearance. If clinically appropriate, please consider a follow-up MRI performed without and with IV contrast. Numerous levels of degenerative change are seen elsewhere, which have overall progressed compared to the prior. Dictated by: Jose Bettencourt M.D. on 04/06/2022 at 15:23 Approved by: Jose Bettencourt M.D. on 04/06/2022 at 15:28
== END ==
PROVIDERS: PCP Family Medicine; Referring Provider Orthopaedic Surgery Orthopaedic Surgery of the Spine; Visit Provider Orthopaedic Surgery Orthopaedic Surgery of the Spine
DX: M48.061 Spinal stenosis, lumbar region without neurogenic claudication (principal)
CPT/HCPCS: 72148

== ENCOUNTER → 2022-10-11 09:03 | Outpatient (CLI) | payer MEDICARE, OTHER, SELFPAY ==
[2018-04-18 11:21] VITALS: BMI 18.4
[2022-10-11 09:30] LABS: Appearance Urine UA CLEAR; Bilirubin Urine UA NEGATIVE (NEGATIVE); Color Urine UA YELLOW; Glucose Urine UA NEGATIVE (Negative); Ketones Urine UA NEGATIVE (NEGATIVE); Leukocyte Esterase Urine UA NEGATIVE (NEGATIVE); Nitrite Urine UA NEGATIVE (Negative); Occult Blood Urine UA NEGATIVE (Negative); Protein Urine UA NEGATIVE (Negative); Specific Gravity Urine UA <=1.005 (1.000-1.035); Urobilinogen Urine UA 0.2 E.U./dL (0.2)
[2022-10-11 09:35] LABS: Creatinine Urine Random 23.5 mg/dL; Protein (Total) Urine Random 27 mg/dL (0-12); Protein Creatinine Ratio Urine 1.14 GRAM/24H
[2022-10-11 09:54] LABS: pH Urine UA 5.5 (4.5-8.0)
[2022-10-11 10:01] LABS: RBC Urine None Seen (0-5/HPF); WBC Urine None Seen (0-5/HPF)
[2022-10-11 10:02] LABS: Bacteria Urine None Seen; Culture Indicated Urine Cult Not Indicated; Urine Comments Microscopic Normal
[2022-10-11 10:03] LABS: Alanine Aminotransferase 33 IU/L (<35); Alkaline Phosphatase 92 U/L (38-126); Aspartate Aminotransferase 47 IU/L (14-36); Bilirubin Total 0.3 mg/dL (0.2-1.3); Blood Urea Nitrogen 13 mg/dL (7-17); Calcium 9.3 mg/dL (8.4-10.2); Carbon Dioxide 25 mmol/L (22-32); Chloride 100 mmol/L (98-107); Estimated Glomerular Filt Rate > 60 mL/min (>60); Glucose 188 mg/dL (80-110); HEMOLYSIS < 15 (0-50); Potassium 3.9 mmol/L (3.4-5.1); Sodium 137 mmol/L (137-145); Total Protein 7.3 g/dL (6.3-8.2)
[2022-10-15 15:48] LABS: Albumin 4.1 g/dL (3.5-5.0); Albumin Globulin Ratio 1.3 (1.0-2.8); Globulin 3.2 g/dL (1.7-4.1)
== END ==
PROVIDERS: PCP Family Medicine; Referring Provider Specialist; Visit Provider Specialist
DX: N04.1 Nephrotic syndrome with focal and segmental glomerular lesions (principal)
CPT/HCPCS: 36415; 80053; 81001; 82570; 84156

== ENCOUNTER → 2023-11-07 14:39 | Outpatient (ROUT) | payer MEDICARE, OTHER, SELFPAY ==
[2018-04-18 11:21] VITALS: BMI 18.4
[2023-11-07 15:31] LABS: Influenza A - CEPHEID Flu A NEGATIVE (NEGATIVE); Influenza B - CEPHEID Flu B NEGATIVE (NEGATIVE); Respiratory Syncytial Virus Negative (Negative)
[2023-11-07 15:36] LABS: COVID-19 CEPHEID 4-PLEX PCR Negative (Negative)
== END ==
PROVIDERS: PCP Family Medicine; Visit Provider Registered Nurse
DX: R05.1 Acute cough (principal)
CPT/HCPCS: 0241U

== ENCOUNTER 2023-11-08 02:24 | Emergency (ER) | payer MEDICARE, OTHER, SELFPAY ==
[2018-04-18 11:21] VITALS: BMI 18.4
[2023-11-08 02:28] VITALS: BP 118/56; PULSE 87; RESP 20; TEMP 36.8; O2SAT 96; BMI 23.0
--- NOTE | 2023-11-08 03:44 | PC.NURSE ---
EXECUTIVE ASSISTANT note: As I was walking a patient out, Dulce in admitting said Glendy, they'd like to leave. Patient's special education teachers asked what the hell is taking so long? What the hell is the hold up back there? I explained to patient and special education teachers we are really busy, we are under construction- so we don't have as many beds. Plus as you've seen we have had really sick patients come in. Patient expressed she was very tired and wanted to go to bed, she was falling asleep in the chair. I told her well if you feel like your conditions are worsening we are open 24/ and the walk in care is also open. Had patient sign the appropriate paperwork.
== END 2023-11-08 04:08 | disposition left against medical advice (07) ==
PROVIDERS: PCP Family Medicine
DX: J00 Acute nasopharyngitis [common cold] (principal)
CPT/HCPCS: 99281

== ENCOUNTER → 2023-11-09 15:45 | Outpatient (CLI) | payer MEDICARE, OTHER, SELFPAY ==
[2018-04-18 11:21] VITALS: BMI 18.4
--- NOTE | 2023-11-09 | DI.RAD.S_ITS ---
PROCEDURE: XR CHEST 2V INDICATIONS: COUGH TECHNIQUE: 2 views of the chest were acquired. COMPARISON: [facility], , CHEST 2 VIEW, 12/06/2016, 17:54. FINDINGS: Surgical changes and devices: None. Lungs and pleura: Lungs are clear. No pleural effusions or pneumothorax. Mediastinum: Mediastinal contours are normal. Heart size is enlarged Bones and chest wall: No suspicious bony abnormalities. Soft tissues appear unremarkable. IMPRESSION: No acute pulmonary process. Dictated by: Virginia Greene M.D. on 11/09/2023 at 16:00 Approved by: Virginia Greene M.D. on 11/09/2023 at 16:44
== END ==
PROVIDERS: PCP Family Medicine; Referring Provider Family Medicine; Visit Provider Family Medicine
DX: R05.1 Acute cough (principal)
CPT/HCPCS: 71046

== ENCOUNTER 2023-12-20 08:46 | Day surgery (SDC) | payer MEDICARE, OTHER, SELFPAY ==
[2018-04-18 11:21] VITALS: BMI 18.4
[2023-12-20] MEDS: LACTATED RINGERS 1,000 ML 42 ML IV (09:37)
[2023-12-20 09:51] VITALS: BP 123/62; PULSE 61; RESP 18; TEMP 36.5; O2SAT 97
--- NOTE | 2023-12-20 10:21 | P.HP_ITS ---
History of Present Illness History of Present Illness Date Patient Seen: 12/20/23 Time Patient Seen: 10:21 Chief complaint: Colonoscopy Narrative: 78-year-old woman here for screening colonoscopy. No previous colonoscopy. No family history of intestinal malignancy. No abdominal concerns today. COUNT INCLUDES THE [facility] Medical History History of pneumonia (~2014) Seasonal allergies Tobacco use disorder Osteopenia Breast implant rupture Hemorrhoids Insomnia Anxiety and depression Chronic neck pain Sacroiliitis Arthralgia Restless leg syndrome Nocturnal leg cramps Fatigue Breast lump Lymphadenopathy History of steroid therapy Abnormality of coagulation Sedimentation rate elevation History of renal failure Hematuria, microscopic Hypoalbuminemia Proteinuria Nephrotic syndrome Tachycardia Hyperlipidemia Lumbar disc herniation with radiculopathy Spondylolisthesis, lumbar region Lumbar stenosis with neurogenic claudication History of bronchitis DDD (degenerative disc disease), lumbar Hypertension Low back pain Surgical History S/P rotator cuff repair (~1993) History of breast augmentation Status post biopsy of kidney Social History household members: spouse Smoking Status: Current every day smoker alcohol intake: current Meds Home Medications and Allergies Home Medications Medication Instructions Recorded Confirmed Type atorvastatin 10 mg tablet (Lipitor) 10 mg PO QDAY ##0 12/06/16 12/20/23 History potassium chloride 20 mEq 1 tab PO DAILY ##0 12/06/16 12/20/23 History tablet,extended release(part/cryst) (Klor-Con M) ascorbic acid (vitamin C) 1,000 mg 1,000 mg PO DAILY 04/10/18 12/20/23 History tablet (Vitamin C) calcium carb,cit ER 600 mg-vit D3 2 tab PO DAILY 04/10/18 12/20/23 History 12.5 mcg (500 unit) tablet,ext.rel (Citracal-D3 Slow Release) cholecalciferol (vitamin D3) 125 5,000 unit PO DIRECTED 04/10/18 12/20/23 History mcg (5,000 unit) tablet (Vitamin D3) coenzyme Q10 100 mg tablet 100 mg PO DAILY 04/10/18 12/20/23 History omega 0-roq-jwi-fish oil 1,000 mg 1 cap PO DAILY 04/10/18 12/20/23 History (120 mg-180 mg) capsule atenolol 25 mg tablet 25 mg PO DAILY 04/18/18 12/20/23 History diltiazem HCl 120 mg 120 mg PO DAILY 11/11/21 12/20/23 History capsule,extended release 24 hr pramipexole 0.125 mg tablet 0.125 mg PO BEDTIME 11/11/21 12/20/23 History cyclobenzaprine 10 mg tablet 10 mg PO TID PRN muscle spasm #14 01/15/22 12/20/23 Rx tabs Allergies Allergy/AdvReac Type Severity Reaction Status Date / Time lisinopril Allergy Severe Swelling Verified 12/20/23 09:45 of Lip/Tongue/Throat cyclosporine Allergy Mild skin Verified 12/20/23 09:45 irritation in ear latex Allergy Rash Verified 12/20/23 09:45 losartan Allergy Verified 12/20/23 09:45 adhesive AdvReac Mild Rash Verified 12/20/23 09:45 adhesive tape AdvReac Mild Rash Verified 12/20/23 09:45 hydroxyzine [From Vistaril] AdvReac Mild ITCHING Verified 12/20/23 09:45 Exam Vital Signs (past 8 hours): - 12/20/23 09:51 Temperature 97.7 F Pulse Rate 61 Respiratory Rate 18 Blood Pressure 123/62 Pulse Oximetry 97 Oxygen Delivery Method Room Air Oxygen Delivery Method Room Air Narrative Exam Narrative: General adult woman alert oriented no acute distress Chest nonlabored respiration Extremities warm well perfused Assessment & Plan Assessment & Plan narrative: The patient requires colorectal screening and colonoscopy is recommended. Technical details were discussed. Risks, benefits, alternatives explained. Ris ks including but not limited to myocardial infarction, aspiration, bleeding, pain, missed lesion, incomplete examination, need for further radiographic studies, colonic perforation, and need for major abdominal surgery were discussed. All questions were answered to their satisfaction, and they are in agreement with this plan.
[2023-12-20 10:55] VITALS: BP 115/62; PULSE 74; RESP 16; TEMP 37.2; O2SAT 96
[2023-12-20 11:01] VITALS: BP 112/61; PULSE 74; RESP 12; TEMP 37.2; O2SAT 97
--- NOTE | 2023-12-20 11:01 | P.OP.COLON_ITS ---
Operative Date/Time/Diagnoses Date of procedure: 12/20/23 Time of procedure: 11:01 Pre-op diagnosis: Colorectal screening Procedure & Clinicians Study performed: Colonoscopy Same procedure as scheduled: Yes Indications: Colorectal screening Surgeon: Ryan Gross Procedure Notes Procedure in detail: The history and physical was performed/updated and the patient is ASA class is 2. The procedure was discussed in detail with the patient. Potential risks complications including infection, bleeding, missed diagnosis, perforation, need for surgery, and were explained. Their questions were answered and informed consent was obtained. Patient was brought to the procedure room and placed standard monitoring equipment. The patient's vital signs were monitored continuously throughout the entire procedure. Prior to starting time-out was performed. The patient was placed in the left lateral recumbent position. Procedural sedation was administered by anesthesia. Examination began with a thorough inspection of the perianal area there was no evidence of fissures, fistulae, external hemorrhoids or cutaneous malignancy. The colonoscopy scope was then placed into the anal canal and was advanced to the cecum, which was identified by the ileocecal valve , the appendiceal orifice and the confluence of the taenia. The scope was then slowly withdrawn examining colon thoroughly in all directions, irrigating it of any residual stool. The scope was retroflexed within the rectum The patient tolerated the procedure well. They will be discharged once criteria are met. The prep was of fair quality. The withdrawl time was 6 minutes. FINDINGS * Moderate diverticulosis throughout the colon * No masses polyps or inflammation Specimen(s): none sent Impression: Diverticulosis Post-procedure Recommendations: High fiber diet Disposition: same day surgery
[2023-12-20 11:07] VITALS: BP 95/53; PULSE 63; RESP 15; TEMP 37.1; O2SAT 96
[2023-12-20 11:12] VITALS: BP 100/50; PULSE 65; RESP 15; O2SAT 99
== END 2023-12-20 11:24 | disposition home or self-care (01) ==
PROVIDERS: PCP Family Medicine; Referring Provider Surgery; Visit Provider Surgery
PROC: 0DJD8ZZ Inspection of Lower Intestinal Tract, Via Natural or Artificial Opening Endoscopic (ICD-10-PCS; CPT 45378; principal; 2023-12-20 10:15)
DX: Z12.11 Encounter for screening for malignant neoplasm of colon (principal); K57.30 Diverticulosis of large intestine without perforation or abscess without bleeding
CPT/HCPCS: G0121; J2704

== ENCOUNTER → 2024-12-12 07:14 | Outpatient (CLI) | payer MEDICARE, OTHER, SELFPAY ==
[2018-04-18 11:21] VITALS: BMI 18.4
[2024-12-12 07:35] LABS: Appearance Urine UA CLEAR; Bilirubin Urine UA NEGATIVE (NEGATIVE); Color Urine UA YELLOW; Glucose Urine UA NEGATIVE (Negative); Ketones Urine UA NEGATIVE (NEGATIVE); Leukocyte Esterase Urine UA NEGATIVE (NEGATIVE); Nitrite Urine UA NEGATIVE (Negative); Occult Blood Urine UA NEGATIVE (Negative); Protein Urine UA TRACE (Negative); Specific Gravity Urine UA 1.015 (1.000-1.035); Urobilinogen Urine UA 0.2 E.U./dL (0.2); pH Urine UA 5.5 (4.5-8.0)
[2024-12-12 07:36] LABS: Urine Volume 10mL (spun)
[2024-12-12 07:37] LABS: Bacteria Urine None Seen; RBC Urine None Seen (0-5/HPF); Squamous Epithelial Cell Urine 1-5 /HPF (0-5/HPF); WBC Urine None Seen (0-5/HPF)
[2024-12-12 08:10] LABS: Creatinine Urine Random 115.22 mg/dL; Protein (Total) Urine Random 35 mg/dL (0-12)
[2024-12-12 08:13] LABS: Albumin 3.9 g/dL (3.5-5.0); Blood Urea Nitrogen 11 mg/dL (7-17); Calcium 9.5 mg/dL (8.4-10.2); Carbon Dioxide 22 mmol/L (22-32); Chloride 102 mmol/L (98-107); Estimated Glomerular Filt Rate > 60 mL/min (>60); Glucose 89 mg/dL (80-110); HEMOLYSIS < 15 (0-50); Potassium 4.1 mmol/L (3.4-5.1); Sodium 135 mmol/L (137-145)
[2024-12-12 08:15] LABS: Microalbumin Urine Random 11.9 mg/dL (0-1.6)
== END ==
PROVIDERS: PCP Family Medicine; Referring Provider Internal Medicine Nephrology; Visit Provider Internal Medicine Nephrology
DX: N05.1 Unspecified nephritic syndrome with focal and segmental glomerular lesions (principal)
CPT/HCPCS: 36415; 80048; 81001; 82040; 82043; 82570; 84156

== ENCOUNTER → 2025-05-01 11:29 | Outpatient (CLI) | payer MEDICARE, OTHER, SELFPAY ==
[2018-04-18 11:21] VITALS: BMI 18.4
--- NOTE | 2025-05-01 11:32 | DI.RAD.S_ITS ---
PROCEDURE: XR FOOT RT MIN 3V INDICATIONS: RIGHT FOOT PAIN TECHNIQUE: 3 views of the foot were acquired. COMPARISON: None. FINDINGS: Bones: There are no osseous abnormalities Joints: Moderate degeneration 1st MTP and all interphalangeal joints Soft tissues: No soft tissue abnormality. IMPRESSION: Degeneration Dictated by: David Beard M.D. on 05/02/2025 at 11:00 Approved by: David Beard M.D. on 05/02/2025 at 11:01
== END ==
PROVIDERS: PCP Family Medicine; Referring Provider Family Medicine; Visit Provider Family Medicine
DX: M19.071 Primary osteoarthritis, right ankle and foot (principal); M79.671 Pain in right foot
CPT/HCPCS: 73630

== ENCOUNTER → 2025-05-30 06:53 | Outpatient (CLI) | payer MEDICARE, OTHER, SELFPAY ==
[2018-04-18 11:21] VITALS: BMI 18.4
--- NOTE | 2025-05-30 06:54 | DI.MRI.S_ITS ---
PROCEDURE: MR FOOT RT WO CON INDICATIONS: right foot pain TECHNIQUE: Multiplanar, multisequence magnetic resonance imaging was performed of the right fore foot without contrast. FINDINGS: OSSEOUS STRUCTURES: Bone marrow edema and periosteal reaction of the 2nd metatarsal extends from the metatarsal head to the mid shaft. There is a curvilinear, subarticular fracture line in the central metatarsal head. Patchy bone marrow edema in the 1st metatarsal, 3rd metatarsal, and tarsal bones may be secondary to altered gait mechanics and or disuse demineralization. No suspicious, diffuse, marrow replacing abnormality. Partial-thickness articular cartilage loss of the 1st metatarsophalangeal joint with a small 1st metatarsophalangeal joint effusion. Small joint effusion of the 2nd metatarsophalangeal joint. LIAGMENTS: Intact collateral ligaments of the metatarsophalangeal joints. Intact sesamoidal phalangeal ligaments of the 1st ray. Intact plantar plates without tear. Intact Lisfranc ligament. MUSCLES / TENDONS: Likely reactive edema within the 1st and 2nd dorsal interosseous muscles adjacent to the 2nd metatarsal. Otherwise normal signal within the intrinsic foot musculature. Small volume fluid at the master knot of Dane. No tear of flexor hallucis longus, flexor digitorum tendons, or the extensor tendons. NEUROVASCULAR: The distal medial and lateral plantar neurovascular bundles are unremarkable. SOFT TISSUE: Subcutaneous fat edema along the dorsal forefoot. Adventitial fibrosis along the plantar aspect of the 5th metatarsal head, likely secondary to callus formation. No significant intermetatarsal bursitis. The distal visualized plantar fascia is unremarkable. 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 No cortical collapse. Reactive edema within the 1st and 2nd interosseous muscles adjacent to the 2nd metatarsal shaft. Dictated by: Shai Jack M.D. on 05/30/2025 at 9:02 Approved by: Shai Jack M.D. on 05/30/2025 at 11:23
== END ==
LOC: MRI 06:53
PROVIDERS: PCP Family Medicine; Referring Provider Family Medicine; Visit Provider Family Medicine
DX: S92.321A Displaced fracture of second metatarsal bone, right foot, initial encounter for closed fracture (principal); M25.474 Effusion, right foot
CPT/HCPCS: 73718

== ENCOUNTER → 2025-06-14 07:20 | Outpatient (CLI) | payer MEDICARE, OTHER, SELFPAY ==
[2018-04-18 11:21] VITALS: BMI 18.4
[2025-06-14 08:18] LABS: Appearance Urine UA CLEAR; Bilirubin Urine UA NEGATIVE (NEGATIVE); Color Urine UA YELLOW; Glucose Urine UA NEGATIVE (Negative); Ketones Urine UA 1+ (NEGATIVE); Leukocyte Esterase Urine UA TRACE (NEGATIVE); Nitrite Urine UA NEGATIVE (Negative); Occult Blood Urine UA NEGATIVE (Negative); Protein Urine UA TRACE (Negative); Specific Gravity Urine UA 1.015 (1.000-1.035); Urobilinogen Urine UA 0.2 E.U./dL (0.2)
[2025-06-14 08:26] LABS: Protein (Total) Urine Random 50 mg/dL (0-12); Protein Creatinine Ratio Urine 0.44 GRAM/24H
[2025-06-14 08:28] LABS: Albumin 4.3 g/dL (3.5-5.0); Blood Urea Nitrogen 15 mg/dL (7-17); Calcium 9.5 mg/dL (8.4-10.2); Carbon Dioxide 29 mmol/L (22-32); Chloride 99 mmol/L (98-107); Estimated Glomerular Filt Rate > 60 mL/min (>60); Glucose 84 mg/dL (70-99); HEMOLYSIS < 15 (0-50); Potassium 4.2 mmol/L (3.4-5.1); Sodium 136 mmol/L (137-145)
[2025-06-14 08:30] LABS: Microalbumi Creatinin Ratio Ur 102.0 ug/mg CR (<30)
[2025-06-14 08:33] LABS: Culture Indicated Urine Cult Not Indicated; pH Urine UA 6.5 (4.5-8.0)
== END ==
PROVIDERS: PCP Family Medicine; Referring Provider Family Medicine; Visit Provider Internal Medicine Nephrology
DX: N05.1 Unspecified nephritic syndrome with focal and segmental glomerular lesions (principal)
CPT/HCPCS: 36415; 80048; 81001; 82040; 82043; 82570; 84156

== ENCOUNTER → 2025-06-25 11:28 | Outpatient (CLI) | payer MEDICARE, OTHER, SELFPAY ==
[2018-04-18 11:21] VITALS: BMI 18.4
--- NOTE | 2025-06-25 11:29 | DI.RAD.S_ITS ---
PROCEDURE: XR DEXA AXIAL SKELETON INDICATIONS: SCREENING COMPARISON: [facility], , XR DEXA AXIAL SKELETON, 02/02/2018, 15:32. [facility], CR, DEXA AXIAL SKELETON, 12/16/2015, 13:50. FINDINGS: Left Femoral Neck: Bone mineral density 0.608 g/cm2, T score -2.2. Left Hip: Bone mineral density 0.757 g/cm2, T score -1.5, no significant change compared to prior. Left Forearm: Bone mineral density 0.519 g/cm2, T score -2.9. Fracture Risk Calculation (when applicable): 10-year fracture risk of a major osteoporotic fracture 27 percent and of a hip fracture 15 percent. (T score greater or equal to -1.0 to: NORMAL) (T score from -1.1 to -2.4: OSTEOPENIA) (T score less than or equal to -2.5: OSTEOPOROSIS) IMPRESSION: Osteoporosis by WHO classification. Follow-up guidelines as follows: Osteoporosis: Consider a repeat DEXA and Vertebral Fracture Assessment (VFA) exam in 2 years or sooner if medically necessary, to reassess this patient's status. Osteopenia: Consider a repeat DEXA in 2-3 years to reassess this patient's status, or if there is a new clinical indication. Normal: Consider a repeat DEXA in 5 years or sooner, or if there is a new clinical indication. All treatment decisions require clinical judgment and consideration of individual patient factors, including patient preferences, comorbidities, previous drug use, risk factors not captured in the FRAX model (e.g., frailty, falls, vitamin D deficiency, increased bone turnover, interval significant decline in bone density ) and possible under- or over-estimation of fracture risk by FRAX. In addition, the NOF Guide recommends that FDA-approved medical therapies be considered in postmenopausal women and men age >= 50 years with a: * Hip or vertebral (clinical or morphometric) fracture * T-score of <=-2.5 at the spine or hip * Ten-year fracture probability by FRAX of >= 3% for hip fracture or >=20% for major osteoporotic fracture. Dictated by: Tone Sow M.D. on 06/25/2025 at 13:23 Approved by: Tone Sow M.D. on 06/25/2025 at 13:27
== END ==
LOC: RAD 11:29
PROVIDERS: PCP Family Medicine; Referring Provider Family Medicine; Visit Provider Family Medicine
DX: M81.0 Age-related osteoporosis without current pathological fracture (principal); Z78.0 Asymptomatic menopausal state
CPT/HCPCS: 77080

== ENCOUNTER → 2025-09-10 07:31 | Outpatient (CLI) | payer MEDICARE, OTHER, SELFPAY ==
[2018-04-18 11:21] VITALS: BMI 18.4
--- NOTE | 2025-09-10 07:32 | DI.MRI.S_ITS ---
PROCEDURE: MR LUMBAR SPINE WO CON INDICATIONS: Lumbar radiculopathy; back pain TECHNIQUE: Noncontrast sagittal T1 spin echo and T2 fast echo, sagittal STIR, and T2 fast spin echo through the lumbar spine. In cases with scoliosis, additional coronal T2 fast spin echo may be performed. COMPARISON: [facility], XR LUMBAR SPINE 2-3V, 04/18/2018, 8:12. [facility], MR, MR LUMBAR SPINE WO CON, 04/06/2022, 11:57. FINDINGS: Image quality: Excellent. Alignment and Curvature: There is mild, approximately 4 millimeters of L4-L5 anterolisthesis. There is mild, approximately 3 millimeters of L2-L3 and L1-L2 retrolisthesis. Bones: L3-L4 fixation hardware. Modic type 2 reactive endplate changes adjacent to the L2-L3, L3-L4 and L5-S1 discs. Mixed Modic type 1-2 reactive endplate changes adjacent to the L4-L5 disc. No acute vertebral body compression fractures. Spinal Cord: Conus medullaris terminates at the L1 level. Visualized cord demonstrates normal signal and size. Paraspinous Soft Tissues: No paravertebral masses. T12-L1: Loss of disc signal. Mild, diffuse disc bulge. No central stenosis. No neural foraminal narrowing. No neural compression. L1-L2: Loss of disc signal and height. Mild, diffuse disc bulge. No central stenosis. No neural foraminal narrowing. No neural compression. L2-L3: Loss of disc signal and height. Mild, diffuse disc bulge. Mild bilateral facet hypertrophy. Mild narrowing of the central canal. Mild right neural foraminal narrowing. No neural compression. L3-L4: Status post fusion. Mild bilateral facet hypertrophy. No central stenosis. No neural foraminal narrowing. No neural compression L4-L5: Loss of disc signal. Mild, diffuse disc bulge. Moderate bilateral facet hypertrophy. Moderate narrowing of the central canal. Mild bilateral neural foraminal narrowing. No neural compression. L5-S1: Loss of disc signal. Mild bilateral facet hypertrophy. No central stenosis. No neural foraminal narrowing. No neural compression. IMPRESSION: L3-L4 PLIF. Multilevel degenerative disc disease. Multilevel facet arthropathy. No severe central canal stenosis. No severe neural foraminal stenosis. No neural compression. Dictated by: Kimmy Walker MD, PhD on 09/10/2025 at 11:40 Approved by: Kimmy Walker MD, PhD on 09/10/2025 at 12:01
== END ==
LOC: MRI 07:32
PROVIDERS: PCP Family Medicine; Referring Provider Family Medicine; Visit Provider Family Medicine
DX: M47.26 Other spondylosis with radiculopathy, lumbar region (principal); M47.27 Other spondylosis with radiculopathy, lumbosacral region; Z98.1 Arthrodesis status
CPT/HCPCS: 72148